=== PATIENT | male | born 1945 | race Caucasian/White ===

== ENCOUNTER → 2018-10-30 10:45 | Outpatient (CLI) | payer MEDICARE, OTHER, SELFPAY ==
[2018-10-30 11:10] LABS: Hematocrit 28.6 % (42.0-52.0); Hemoglobin 8.5 g/dL (14.1-18.0); Lymphocytes # 1.2 K/mm3 (0.7-4.5); Lymphocytes % 8.9 % (10-50); Mean Corpuscular HGB Conc 29.8 g/dL (31.8-35.4); Mean Corpuscular Hemoglobin 27.5 pg (27.0-31.2); Mean Corpuscular Volume 92.2 fl (80-94); Mean Platelet Volume 6.9 fl (7.4-10.4); Monocytes # 0.6 K/mm3 (0.1-1.0); Monocytes % 4.6 % (1.7-9.3); Neutrophils # 11.5 K/mm3 (1.8-7.8); Neutrophils % 86.4 % (37.0-80.0); Platelet Count 497 K/mm3 (142-424); Red Cell Distribution Width 15.1 % (11.5-17.5); White Blood Count 13.4 K/mm3 (4.8-10.8)
[2018-10-30 11:16] LABS: MANUAL DIFFERENTIAL MANUAL DIFFERENTIAL (MANUAL DIFF)
[2018-10-30 12:51] LABS: Anion Gap 17.5 mEq/L (5-15); Blood Urea Nitrogen 13 mg/dL (7-18); Calcium 8.9 mg/dL (8.5-10.1); Carbon Dioxide 23 mmol/L (21.0-32.0); Chloride 106 mmol/L (98-107); Creatinine,Serum 1.07 mg/dL (0.70-1.30); Estimated Glomerular Filt Rate 68 ml/min (>60); GFR (African American) 82 ML/MIN (>60); Glucose 173 mg/dL (74-106); Potassium 4.5 mmoL/L (3.5-5.1); Sodium 142 mmol/L (136-145)
[2018-10-30 14:40] LABS: Lymphocytes % 10 % (10-50); Monocytes % 3 % (2-9); Neutrophils % 83 % (42-76); Platelet Estimate Slight Increase; RBC Morphology Normal; Total Cells Counted 100
== END ==
LOC: LAB 10:47 → LAB.DROPOF 11-01 13:54
PROVIDERS: Visit Provider Emergency Medicine
DX: R06.02 Shortness of breath (principal); R53.1 Weakness
CPT/HCPCS: 36415; 80048; 85007; 85025

== ENCOUNTER 2020-05-16 14:21 | Emergency (ER) | payer MEDICARE, SELFPAY ==
[2020-05-16 14:38] VITALS: BP 165/84; PULSE 114; RESP 14; TEMP 36.6; O2SAT 95; BMI 33.9
--- NOTE | 2020-05-16 14:38 | XR_ITS ---
PROCEDURE: XR FOOT LT MIN 3V CLINICAL INDICATION: foot run over by fork truck COMPARISON: No exams were available for comparison FINDINGS: No fracture or dislocation. No lytic or blastic change. There is normal mineralization. Mild degenerative changes at the talonavicular joint and tarsal metatarsal junction. 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 Other findings:None. IMPRESSION: No acute findings. Dictated by: Maxwell Love MD 05/16/2020 15:48 Maxwell Love MD in [place] 05/16/2020 15:48
--- NOTE | 2020-05-16 14:45 | HMH.EDUTC ---
[facility] [facility] [place] Clinical Impression: Foot contusion Qualifiers: Encounter type: initial encounter Laterality: left Qualified Code(s): S90.32XA - Contusion of left foot, initial encounter Disposition: Home, Self-Care Condition on Discharge: Good Instructions: How To Perform RICE (Rest, Ice, Compress, Elevate) Additional Instructions: *RICE, Rest the extremity, Ice 15-20 minutes 3-4 times daily, Compress- wear the david wrap as discussed as much as possible to help reduce swelling and pain, Elevate the extremity when at rest *David wrap/Walking boot is for support and help control swelling, use it except in the shower. Be sure that is not to tight but not to loose either *Elevate when resting and ice 20 minutes every 2 hours will help with pain,swelling and bruising *Ibuprofen every 6-8 hours as needed for pain an inflammation. If need something more can take Tylenol in between doses of Ibuprofen to help Immediately follow up with your family doctor for new or worsening of symptoms, or no noticeable improvement over the next 3-5 days Return if needed You may call back to the [facility] later this evening for the official reading of your xray and further instructions Straight to ER if any life threatening symptoms Referrals: Tavares Zayas MD [Primary Care Provider] - As needed William Hassan MD [Staff Physician] - Time of Disposition: 15:19 Medical Decision Making - Yaya Inquiry Pt receiving controlled substance: No Yaya was queried for this patient: No Vital Signs: 05/16/20 14:38 05/16/20 15:22 Temperature 98 F 98 F Temperature Source Tympanic Pulse Rate 110 H Pulse Rate [Right] 114 H Respiratory Rate 14 16 Blood Pressure 160/81 H Blood Pressure [Right Arm] 165/84 H Blood Pressure Mean [Right Arm] 111 Blood Pressure Source Automatic Cuff Blood Pressure Source [Right Arm] Automatic Cuff Blood Pressure Position Sitting Blood Pressure Position [Right Arm] Sitting 02 Sat by Pulse Oximetry 95 Oxygen Delivery Method Room Air - Radiology Data #1 Image(s): Foot/Toes Image Reviewed: Yes I reviewed the patient's radiology image Preliminary Findings: No Fracture [place] [facility] [place] - General Stated complaint: [id number] left foot pain Time Seen by Provider: 05/16/20 14:46 Mode of Arrival: Ambulatory Source of Information: Patient Limitations: No Limitations Description of Symptoms (Recalled from Triage Doc. by RN): PT HAD HIS LEFT FOOT RAN OVER BY A FORK LIFT. PAIN IN L FOOT AND BIG TOE. HEENT Symptoms (Recalled from RN notes): No Resp Symptoms (Recalled from RN notes): No Skin Symptoms (Recalled from RN notes): No MS Symptoms (Recalled from RN notes): Yes (L FOOT PAIN) Functional Status (Recalled from RN notes): NA - History of Present Illness Provider Complaint: Patient states that around 10am he was at work and his left foot was run over accidently with a fork lift State that he has continued to work today but noticed he was having more pain and swelling in his left foot and great toe area so he came in to have it checked - Related Data Home Medications Medication Instructions Recorded Confirmed No Known Home Medications 03/27/19 03/27/19 Allergies Allergy/AdvReac Type Severity Reaction Status Date / Time No Known Allergies Allergy Verified 05/16/20 14:26 - Worker's Comp Is this a Worker's Comp case?: No [facility] History - Hepatitis A Screen Drug use history?: No High risk sexual behaviors?: No History of sexually transmitted infection?: No Currently employed?: No Childcare worker?: No Do you have indoor plumbing?: Yes Do you have electricity?: Yes Attestation statement:: This patient has been screened for Hepatitis A risk factors. I have reviewed the patient's past medical history: Yes Medical History: Denies:: Diabetes Mellitus Type 1, Diabetes Mellitus Type 2 Other Medical History: Reports: Other - Social History Smoking Status: Never smoker Alcohol Intake:
[2020-05-16 15:22] VITALS: BP 160/81; PULSE 110; RESP 16; TEMP 36.6
== END 2020-05-16 15:28 | disposition home or self-care (01) ==
PROVIDERS: Emergency Provider Nurse Practitioner; PCP Family Medicine
DX: S90.32XA Contusion of left foot, initial encounter (principal); W31.89XA Contact with other specified machinery, initial encounter; Y92.69 Other specified industrial and construction area as the place of occurrence of the external cause; Y99.0 Civilian activity done for income or pay
CPT/HCPCS: 29515; 73630; 99202; G0463

== ENCOUNTER 2021-07-16 19:34 | Emergency (ER) | payer MEDICARE, SELFPAY ==
[2021-07-16] VITALS (10 sets, daily range): BP systolic 130–160; BP diastolic 58–68; PULSE 47–59; RESP 14–26; TEMP 36.4–36.8; O2SAT 91–97; BMI 33.9
--- NOTE | 2021-07-16 19:33 | ECG_ITS ---
APPROVED REPORT Exam: Resting ECG HR:57 bpm ECG Measurements Heart Rate 57 AXES ND 148 P 61 QRSd 134 QRS 90 QT 573 T 38 QTc 568 Conclusion SINUS BRADYCARDIA WITH OCCASIONAL SUPRAVENTRICULAR PREMATURE COMPLEXES RIGHT BUNDLE BRANCH BLOCK [120+ ms QRS DURATION, UPRIGHT V1, 40+ ms S IN I/aVL/V4/V5/V6] PROLONGED QT INTERVAL CRITICAL TEST RESULT UNCONFIRMED REPORT Electronically signed by : Tavares Rice MD 07/18/2021 08:03:29
--- NOTE | 2021-07-16 19:38 | HMH.EDGENADL ---
ED Disposition Condition on Discharge: Good - Critical Care Critical Care Time: No <Jd Broderick - Last Filed: 07/16/21 19:38> <Roberto Greer - Last Filed: 07/16/21 23:46> Clinical Impression: Arm paresthesia, left, Neck pain, Shortness of breath, Heart murmur, systolic, Elevated brain natriuretic peptide (BNP) level Disposition: Home, Self-Care Instructions: DI for Shortness of Breath Additional Instructions: see card in am Referrals: Norma Watson MD [Primary Care Provider] - Mauricio Corcoran MD [Staff Physician] - Attestation: On 07/16/21, the high probability of a clinically significant, sudden or life threatening deterioration of the following system(s) required my full and direct attention, intervention and personal management. The time I documented below is in addition to time spent performing reported procedures but includes the following listed in this critical care notation. Medical Decision Making - Medical Records Medical records reviewed: Yes: I reviewed the patient's medical records. - Yaya Inquiry Pt receiving controlled substance: No - ECG Data Tracing #1 I reviewed this ECG and interpreted as documented below: <Jd Broderick - Last Filed: 07/16/21 19:38> - Lab Data Lab results reviewed: Yes: I reviewed the patient's lab results. Result diagrams: 07/16/21 19:37 07/16/21 19:37 - Radiology Data #1 Image(s): Chest Image Reviewed: Yes I have reviewed radiologist's interpretation Preliminary Findings: Normal/NAD - CT Data CT Scan: Chest Time Received: 23:[address] Reviewed: Yes: I have viewed the radiologist's interpretation Preliminary Findings: Abnormal (see report ) - Physician Consults Physician Consulted: moris Reason -: Pt condition - JOSIAH Score for Non-Stemi Age of Patient: 70-79 years old Heart Rate: 50-69 bpm Systolic Blood Pressure: 160-199 mmHg Serum Creatinine: 1.20-1.59 mg/dl CHF Killip Class: II-Pulmonary Rales or Jug Other Risk Factors: None Non-Stemi Risk Score: 118 <Roberto Greer - Last Filed: 07/16/21 23:46> Vital Signs: 07/16/21 19:35 07/16/21 20:01 07/16/21 20:30 Temperature 97.5 F L Temperature Source Oral Pulse Rate 50 L 47 L Pulse Rate [Right] 59 L Respiratory Rate 21 17 22 Blood Pressure 134/58 L 130/62 Blood Pressure [Right Arm] 160/58 H Blood Pressure Mean Blood Pressure Mean [Right Arm] 92 02 Sat by Pulse Oximetry 97 95 92 L Oxygen Delivery Method Room Air Room Air 07/16/21 21:01 07/16/21 21:30 07/16/21 22:01 Temperature Temperature Source Pulse Rate 51 L 48 L 48 L Pulse Rate [Right] Respiratory Rate 22 19 26 H Blood Pressure 142/62 H 150/61 H 130/59 L Blood Pressure [Right Arm] Blood Pressure Mean 86 Blood Pressure Mean [Right Arm] 02 Sat by Pulse Oximetry 95 96 91 L Oxygen Delivery Method Room Air Room Air 07/16/21 22:31 07/16/21 23:01 07/16/21 23:30 Temperature Temperature Source Pulse Rate 48 L 47 L 51 L Pulse Rate [Right] Respiratory Rate 14 14 24 Blood Pressure 141/68 H 141/61 H 154/63 H Blood Pressure [Right Arm] Blood Pressure Mean Blood Pressure Mean [Right Arm] 02 Sat by Pulse Oximetry 95 94 L 94 L Oxygen Delivery Method Room Air Room Air Room Air 07/16/21 23:31 Temperature 98.3 F Temperature Source Oral Pulse Rate 50 L Pulse Rate [Right] Respiratory Rate 19 Blood Pressure 154/63 H Blood Pressure [Right Arm] Blood Pressure Mean Blood Pressure Mean [Right Arm] 02 Sat by Pulse Oximetry Oxygen Delivery Method Room Air - Lab Data Lab Results 07/16/21 19:37: WBC 8.0, RBC 4.58 L, Hgb 14.9, Hct 43.6, MCV 95.3 H, MCH 32.6 H, MCHC 34.2, RDW 13.3, Plt Count 139 L, MPV 8.0, Neut % (Auto) 52.8, Lymph % (Auto) 24.7, [place] % (Auto) 9.8 H, Eos % (Auto) 12.2 H, Baso % (Auto) 0.6, Neut # (Auto) 4.2, Lymph # (Auto) 2.0, [place] # (Auto) 0.8, Eos # (Auto) 1.0 H, Baso # (Auto) 0.1 07/16/21 19:37: Sodium 139, Potassium 3.5,
--- NOTE | 2021-07-16 19:40 | XR_ITS ---
PROCEDURE INFORMATION: Exam: XR Chest Exam date and time: 07/16/2021 8:02 PM Age: 76 years old Clinical indication: Shortness of breath; Patient HX: Left arm numbness; Additional info: SOA TECHNIQUE: Imaging protocol: XR of the chest. Views: 1 view. COMPARISON: CR XR CHEST 2V 03/27/2019 8:58 PM FINDINGS: Lungs: No consolidation. Pleural spaces: No pneumothorax. Heart/Mediastinum: No cardiomegaly. Bones/joints: No acute abnormality. IMPRESSION: No acute findings.
[2021-07-16 19:55] LABS: Basophils # 0.1 K/mm3 (0-0.2); Basophils % 0.6 % (0.1-2.0); Eosinophils % 12.2 % (0.1-12.0); Hematocrit 43.6 % (42.0-52.0); Hemoglobin 14.9 g/dL (14.1-18.0); Lymphocytes % 24.7 % (10-50); Mean Corpuscular HGB Conc 34.2 g/dL (31.8-35.4); Mean Corpuscular Hemoglobin 32.6 pg (27.0-31.2); Mean Corpuscular Volume 95.3 fl (80-94); Monocytes # 0.8 K/mm3 (0.1-1.0); Monocytes % 9.8 % (1.7-9.3); Neutrophils # 4.2 K/mm3 (1.8-7.8); Neutrophils % 52.8 % (37.0-80.0); Platelet Count 139 K/mm3 (142-424); Red Blood Count 4.58 M/mm3 (4.60-6.20); Red Cell Distribution Width 13.3 % (11.5-17.5)
[2021-07-16 20:01] LABS: Chloride 107 mmol/L (98-107); Sodium 139 mmol/L (136-145)
[2021-07-16 20:02] LABS: Potassium 3.5 mmoL/L (3.5-5.1)
--- NOTE | 2021-07-16 20:03 | PC.NURSE ---
RAD at bedside
[2021-07-16 20:04] LABS: Alanine Aminotransferase 52 U/L (12-78); Albumin Level 3.6 g/dl (3.5-5.0); Albumin/Globulin Ratio 1.2 (1.1-1.8); Alkaline Phosphatase 110 U/L (38-126); Anion Gap 9.5 mEq/L (5-15); Aspartate Amino Transferase 45 U/L (17-59); Bilirubin,Total 0.5 mg/dl (0.2-1.3); Blood Urea Nitrogen 22 mg/dl (9-20); Carbon Dioxide 26 mmol/L (22.0-30.0); Creatinine Clearance Estimated 72 mL/min (50-200); Estimated Glomerular Filt Rate 59 ml/min (>60); GFR (African American) 71 ML/MIN (>60); Total Protein,Serum 6.6 g/dl (6.3-8.2)
[2021-07-16 20:05] LABS: Calcium 9.2 mg/dl (8.4-10.2); Glucose 86 mg/dl (74-100)
[2021-07-16 20:16] LABS: Troponin I 0.02 ng/ml (0.00-0.034)
--- NOTE | 2021-07-16 22:00 | CT_ITS ---
PROCEDURE INFORMATION: Exam: CTA Chest With Contrast Exam date and time: 07/16/2021 10:15 PM Age: 76 years old Clinical indication: Shortness of breath; Additional info: SOA TECHNIQUE: Imaging protocol: Computed tomographic angiography of the chest with contrast. 3D rendering (Not supervised by radiologist): MIP and/or 3D reconstructed images were created by the technologist. Radiation optimization: All CT scans at this facility use at least one of these dose optimization techniques: automated exposure control; mA and/or kV adjustment per patient size (includes targeted exams where dose is matched to clinical indication); or iterative reconstruction. Contrast material: ISOVUE 370; Contrast volume: 70 ml; Contrast route: INTRAVENOUS (IV); COMPARISON: CR XR CHEST PORTABLE 07/16/2021 8:02 PM FINDINGS: Pulmonary arteries: Normal. No pulmonary emboli. Aorta: Calcified atherosclerosis. No aortic aneurysm. No aortic dissection. Lungs: Evaluation is limited by motion. Emphysema with septal thickening and streaky dependent pulmonary opacities. Pleural spaces: Small right and trace left pleural effusions. Heart: No cardiomegaly. No pericardial effusion. Lymph nodes: No enlarged lymph nodes. Spleen: There are multiple splenic calcifications likely on the basis of prior granulomatous exposure. Bones/joints: No acute fracture. Soft tissues: No significant swelling. IMPRESSION: Emphysema with effusions, septal thickening and streaky dependent pulmonary opacities likely secondary to edema. Follow-up to radiographic clearance is recommended.
--- NOTE | 2021-07-16 22:54 | PC.NURSE ---
Notified Lab more blood work orders had been added
[2021-07-16 23:01] LABS: Troponin I 0.02 ng/ml (0.00-0.034)
[2021-07-16 23:14] LABS: NT Pro Brain Natriuretic Pep. 1710 pg/mL (0-450)
[2021-07-16 23:22] LABS: T4 (Thyroxine) 8.6 ug/dl (5.53-11.0)
--- NOTE | 2021-07-16 23:34 | PC.NURSE ---
ER speaking with dr subramanian at this time
[2021-07-16 23:36] LABS: Thyroid Stimulating Hormone 1.84 uIU/mL (0.465-4.68)
== END 2021-07-16 23:58 | disposition home or self-care (01) ==
PROVIDERS: Emergency Medicine; Emergency Provider Emergency Medicine; PCP Family Medicine
DX: R07.9 Chest pain, unspecified; M54.2 Cervicalgia; R00.1 Bradycardia, unspecified; R06.02 Shortness of breath; R20.2 Paresthesia of skin; R79.89 Other specified abnormal findings of blood chemistry; I45.10 Unspecified right bundle-branch block; I44.1 Atrioventricular block, second degree; R01.1 Cardiac murmur, unspecified; R94.31 Abnormal electrocardiogram [ECG] [EKG]; R53.82 Chronic fatigue, unspecified; Z79.84 Long term (current) use of oral hypoglycemic drugs; Z87.891 Personal history of nicotine dependence
CPT/HCPCS: 71045; 71275; 80053; 83880; 84436; 84443; 84484; 85025; 93005; 99285; Q9967

== ENCOUNTER 2021-07-17 10:26 | Day surgery (SDC) | payer MEDICARE, SELFPAY ==
[2021-07-17] VITALS (11 sets, daily range): BP systolic 112–193; BP diastolic 74–108; PULSE 60–92; RESP 15–18; O2SAT 93–98; BMI 35.0
--- NOTE | 2021-07-17 | IR_ITS ---
APPROVED REPORT Patient Location: Outpatient Truck Repair Supervisor: RAJ Han RT (R) PROCEDURES 1. Pocket formation for Permanent Pacemaker Placement. 2. Placement of an atrial sensing and pacing coil into the right atrial appendage. 3. Placement of a ventricular sensing and pacing coil in the right ventricular apex. 4. Permanent Pacemaker Placement. INDICATION 2nd degree HB Mobitz II Informed consent was obtained prior to the procedure. COMPLICATIONS NONE Estimated Blood Loss: LESS THAN 10 ML TECHNIQUE 1% Lidocaine with epinephrine used to anesthetized the left anterior aspect of the chest. Scalpel was used to make the initial cutaneous incision while electrocautery was used to dissect down tinto the fascia. The fascia was lifted off the pectoralis muscle and digitally manipulated creating a pocket for the pacemaker. The patient was then placed in Trendelenburg position and the subclavian vein was accessed twice via the Selinger technique, there are two wires in the vein. A 6 Monegasque sheath was placed under fluoroscopic guidance into the subclavian vein over one of the wires while keeping the other wire in place within the subclavian vein. The dilator was removed from the sheath. Using fluoroscopic guidance, the ventricular lead was placed into the right ventricular apex, screwed and secured into place. Electronic interrogation proved acceptable thresholds and voltage within the lead. Using 3-0 silk, the ventricular lead was then secured into place. Lead was secured to the facia using the 3-0 silk. Following this, the sheath was pealed away. An additional 6 Monegasque fresh sheath and dilator was placed over the existing wire. Using fluoroscopic guidance, the atrial lead was the placed into the right atrial appendage and screwed and secured in place. Electrical interrogation demonstrated acceptable thresholds and voltage number. The atrial lead was then secured into place using 3-0 silk. 1 gram of Ancef was used to flush the pocket. Following the pacemaker generator being secured to the fascia and in place, Monocryl was used to close the subcutaneous layers while yaniv were used to close the cutaneous layer. A pressure dressing was placed and the patient was transferred to the postop holding area in stable condition for postoperative care. INTERROGATION Generator Model number: Core CompetenceMATT MOMIN DR, L311 Generator Serial number: [id number] Atrial lead model number: INGEVITY+ 52CM, 7841 Atrial lead serial number: [id number] P-wave: 4.0 mV Impedence: 850 ohms Threshold: 0.7V@0.4ms Current: 0.9 mA Right Ventricular lead model number: CLAU+ 59CM, 7842 Right Ventricular lead serial number: [id number] R-wave: 12.0 mV Impedence: 895 ohms Threshold: 0.7V@0.4ms Current: 0.8 mA Pacing Parameters: Mode: DDDR Base/Max Track:60 ppm / 130 ppm No diaphragmatic stimulation at 10 volts. IMPRESSION 1. Successful pocket formation for Permanent Pacemaker Placement. 2. Successful placement of an atrial sensing and pacing coil into the right atrial appendage. 3. Successful placement of a ventricular sensing and pacing coil in the right ventricular apex. 4. Successful permanent Pacemaker Placement. PLAN 1. POST OP WOUND CARE Electronically signed by : Mauricio Corcoran MD 07/17/2021 15:19:42
--- NOTE | 2021-07-17 10:28 | CA_ITS ---
APPROVED REPORT EXAM: Comprehensive 2D, Doppler, and color-flow Echocardiogram Family Dinner Service Specialist: Yolanda Ledezma, DANAE, RVS Ht: 5 ft 6 in Wt: 217lbs BSA: 2.07 BP: 000/00 mmHg Indications: 1st degree AV block, Near syncope, Murmurs, fatigue, SOA, Dizziness, elevated BNP 2D Dimensions Aortic Root 2.96 cm LA Volume 56.90 mL Left Atrium 3.93 cm LA Volume Index [id number] mL/m2 (M/F) 16-34 LVOT 2.14 cm (M/F) 1.5-2.5 M-Mode Dimensions RVDd 2.72 cm (0.9-2.6) LA Diam 4.53 cm (1.9-4.0) LVDd 4.19 cm (3.5-5.7) Ao Diam 3.30 cm (2.0-3.7) LVDs 2.18 cm (3.5-5.7) IVSd 1.00 cm (0.6-1.1) PWd 1.00 cm (0.6-1.1) EF (Teich) 79.80% EPSs 0.27 cm FS 48.00% EDV (Teich) 78.10 mL TAPSE 2.39 (<1.7) ESV (Teich) 15.80 mL LV Diastology E Decel Time 250.00 (160-240 msec) E/A Ratio 0.93 MED E' 6.80 (< 7 cm/sec) MED A' 10.30 cm/s E'/MED E' Ratio 20.91 (>14) LAT E' 13.90 (<10 cm/sec) LAT A' 7.60 cm/s E/LAT E' Ratio 10.23 (>14) Aortic Valve LVOT Max 140.00 (70-110 cm/s) LVOT VTI 36.40 cm AoV Peak Brian. 344.00 (50-130 cm/s) AI PHT 533.00 ms AO Peak GR. 47.60 mmHg AO Mean GR. 31.40 (<5 mmHg) AO VTI 84.60 (18-25 cm) HOLLAND (VTI) 1.55 (2.5-4.5 cm2) Mitral Valve MV A Velocity 154.00 (40-130 cm/s) E/A Ratio 0.93 MV Decel. Time 250.00 (160-240 ms) MV Mean Gr. 3.80 (<2mmHg) MV PHT 73.00 ms Pulmonary Valve PV Peak Velocity 122.00 (50-150 cm/s) MD End VMAX 202.00 cm/s Tricuspid Valve TR P. Velocity 320.00 cm/s RAP Estimate 10.00 mmHg RVSP 50.90 mmHg Left Ventricle Left atrium is mildly enlarged, left ventricle is normal size, mild concentric left ventricular hypertrophy, estimated ejection fraction 55% with no regional wall motion abnormality. Diastolic parameters are inconclusive. Right Ventricle Right atrium and right ventricle are mildly enlarged with normal contractility. Aortic Valve Aortic valve is thickened and calcified with severe restriction to leaflet mobility, mean gradient across aortic valve is 35 mmHg, valve area is not accurately calculated, there is likely severe aortic stenosis, there is mild aortic insufficiency. Mitral Valve Mitral valve leaflets are minimally thickened, there is mild mitral regurgitation. Tricuspid Valve Tricuspid valve grossly normal, there is mild tricuspid regurgitation, tricuspid regurgitation jet velocity is inadequate for calculation of the right ventricular systolic pressure. Pulmonic Valve Pulmonic valve is poorly visualized. Great Vessels Aortic root is normal size. Inferior vena cava is poorly visualized. Pericardium No significant pericardial effusion. Conclusion 1. Mild biatrial enlargement, normal left ventricular size, mild concentric left ventricular hypertrophy, estimated ejection fraction 55% with no regional wall motion abnormality, diastolic parameters are inconclusive. 2. Thickened and calcified aortic valve with likely severe aortic stenosis valve area is not accurately calculated in the study. There is mild aortic insufficiency. 3. Mild mitral and tricuspid regurgitation. 4. No significant pericardial effusion noted. 5. Inferior vena cava is poorly visualized. Electronically signed by : Clemente Parson MD 07/17/2021 21:43:26
[2021-07-17 11:10] LABS: Coronavirus 19, PCR Not Detected (NotDetected); Influenza A, PCR Not Detected (NotDetected); Influenza B, PCR Not Detected (NotDetected)
--- NOTE | 2021-07-17 13:33 | HMH.ANESCL ---
[facility] Anesthesia Checklist - Patient Identification Patient Identification: Arm Band - Structural Data Admitted From: Home Planned Operative Procedure/s: Dual Chamber Pacemaker, AICD Consent for Planned Operative Procedure(s) Verified: Yes Verified Documents: Surgical Consent, History and Physical - NPO Status Verified Time NPO: 00:00 - Additional verifications Anesthesia Reactions: No - Airway Assessment C-Spine Mobility Assessed: Yes (mp3) TMJ Mobility Assessed: Yes Dentition: Edentulous - Neurological Assessment Level of Consciousness: Awake, Alert - Anesthesia Plan Anesthesia Risk discussed: Yes Anesthesia Plan: Verified ASA Class: III Anesthesia Type: MAC [facility] History I have reviewed the patient's past medical history: Yes Medical History: Reports:: Arrhythmia, Hypertension Denies:: Diabetes Mellitus Type 1, Diabetes Mellitus Type 2 *Have you ever received a pneumonia vaccine?: Yes *Have you received a flu vaccine this season?: Yes Other Medical History: Reports: Other Anesthesia experience/problems:: nac Other Surgeries: Yes: Colonoscopy, EGD - *Social History Last grade of school completed: GED Smoking Status: Former smoker Alcohol Intake: never Substance Use Type: denies use *Occupational Status:: retired *Travel in the last 8 weeks: None Family Hx:: Diabetes, Heart Attack, Hypertension
--- NOTE | 2021-07-17 14:32 | XR_ITS ---
FINAL REPORT CLINICAL HISTORY: post pace maker FINDINGS: The heart size is normal. There is a left subclavian pacemaker. The mediastinum is normal. There is no focal infiltrate or edema. There are no pleural effusions. There is no pneumothorax. There is no osseous abnormality. IMPRESSION: Left subclavian pacemaker without pneumothorax. Reviewed, Interpreted and Dictated by Michael Ivey MD Transcribed by Matt Boyd Authenticated by Michael Ivey MD on 07/17/2021 03:50:32 PM [facility]
== END 2021-07-17 16:29 | disposition home or self-care (01) ==
LOC: LAB 12:59 → CATHLAB 12:59
PROVIDERS: Internal Medicine; PCP Family Medicine; Visit Provider Physician Assistant
DX: I44.1 Atrioventricular block, second degree (principal); R00.1 Bradycardia, unspecified; I45.10 Unspecified right bundle-branch block; R06.02 Shortness of breath; R42 Dizziness and giddiness; R53.83 Other fatigue; R55 Syncope and collapse; R79.89 Other specified abnormal findings of blood chemistry; R94.31 Abnormal electrocardiogram [ECG] [EKG]; Z87.891 Personal history of nicotine dependence; I10 Essential (primary) hypertension; Z20.822 Contact with and (suspected) exposure to COVID-19
CPT/HCPCS: 33208; 71045; 93306; C1785; C1898; C9803; U0003; U0005

== ENCOUNTER 2021-07-26 20:32 | Emergency (ER) | payer MEDICARE, SELFPAY ==
[2021-07-26] VITALS (8 sets, daily range): BP systolic 113–155; BP diastolic 62–77; PULSE 82–96; RESP 12–21; TEMP 36.7–36.8; O2SAT 94–97; BMI 33.9
--- NOTE | 2021-07-26 20:32 | ECG_ITS ---
APPROVED REPORT Exam: Resting ECG HR:95 bpm ECG Measurements Heart Rate 95 AXES MO 149 P 54 QRSd 153 QRS 85 QT 374 T -72 QTc 427 Conclusion SINUS RHYTHM RIGHT BUNDLE BRANCH BLOCK [120+ ms QRS DURATION, UPRIGHT V1, 40+ ms S IN I/aVL/V4/V5/V6] MARKED T-WAVE ABNORMALITY, CONSIDER ANTEROLATERAL ISCHEMIA [-0.5+ mV T-WAVE IN I/aVL/V3-V6] MODERATE T-WAVE ABNORMALITY, CONSIDER INFERIOR ISCHEMIA [-0.1+ mV T-WAVE IN II/aVF] ABNORMAL ECG UNCONFIRMED REPORT Electronically signed by : Tavares Rice MD 07/27/2021 09:03:02
--- NOTE | 2021-07-26 20:41 | XR_ITS ---
PROCEDURE INFORMATION: Exam: XR Chest Exam date and time: 07/26/2021 8:53 PM Age: 76 years old Clinical indication: Sternal or substernal pain; Additional info: Chest pain TECHNIQUE: Imaging protocol: XR of the chest. Portable AP upright exam 8:55 p.m. Views: 1 view. COMPARISON: CR XR CHEST AP 07/17/2021 2:53 PM FINDINGS: Lungs: No acute pulmonary findings. No pulmonary consolidation. Mild subsegmental atelectasis or interstitial scarring at the left base. Pulmonary vessels do not appear significantly congested. Pleural spaces: Unremarkable. No significant pleural effusion. No pneumothorax. Heart/Mediastinum: Upper normal sized cardiac silhouette. A dual lead left subclavian cardiac pacemaker. Overlying operating room coordinator electrodes. Vasculature: Calcified plaques in the aortic arch. Bones/joints: There are spinal degenerative changes, with multilevel disc narrrowing and spondylosis. Bilateral acromioclavicular arthritis. IMPRESSION: 1. No acute cardiopulmonary findings. 2. Additional nonemergency and chronic findings as above.
[2021-07-26 21:16] LABS: Basophils # 0.1 K/mm3 (0-0.2); Eosinophils % 15.2 % (0.1-12.0); Hematocrit 50.6 % (42.0-52.0); Lymphocytes # 1.8 K/mm3 (0.7-4.5); Lymphocytes % 27.5 % (10-50); Mean Corpuscular HGB Conc 33.6 g/dL (31.8-35.4); Mean Corpuscular Hemoglobin 32.7 pg (27.0-31.2); Mean Corpuscular Volume 97.1 fl (80-94); Mean Platelet Volume 7.8 fl (7.4-10.4); Monocytes # 0.8 K/mm3 (0.1-1.0); Monocytes % 12.7 % (1.7-9.3); Neutrophils # 2.8 K/mm3 (1.8-7.8); Neutrophils % 42.5 % (37.0-80.0); Platelet Count 149 K/mm3 (142-424); Red Blood Count 5.22 M/mm3 (4.60-6.20); Red Cell Distribution Width 13.6 % (11.5-17.5); White Blood Count 6.5 K/mm3 (4.8-10.8)
[2021-07-26 21:21] LABS: Chloride 96 mmol/L (98-107); Potassium 3.6 mmoL/L (3.5-5.1); Sodium 133 mmol/L (136-145)
[2021-07-26 21:24] LABS: Blood Urea Nitrogen 23 mg/dl (9-20); Creatinine Clearance Estimated 78 mL/min (50-200); Estimated Glomerular Filt Rate 65 ml/min (>60); GFR (African American) 79 ML/MIN (>60)
[2021-07-26 21:25] LABS: Anion Gap 12.6 mEq/L (5-15); Calcium 8.9 mg/dl (8.4-10.2); Carbon Dioxide 28 mmol/L (22.0-30.0); Glucose 155 mg/dl (74-100)
--- NOTE | 2021-07-26 21:29 | HMH.EDCP ---
ED Disposition Clinical Impression: Unstable angina pectoris, Non-ST elevated myocardial infarction (non-STEMI), Pacemaker Aortic stenosis Qualifiers: Cardiac valve disease etiology: etiology unspecified Qualified Code(s): I35.0 - Nonrheumatic aortic (valve) stenosis Disposition: Xfer Short-Term Hosp Condition on Discharge: Good Referrals: Norma Watson MD [Primary Care Provider] - - Critical Care Critical Care Time: No Attestation: On 07/26/21, the high probability of a clinically significant, sudden or life threatening deterioration of the following system(s) required my full and direct attention, intervention and personal management. The time I documented below is in addition to time spent performing reported procedures but includes the following listed in this critical care notation. Medical Decision Making - Medical Records Medical records reviewed: Yes: I reviewed the patient's medical records. - Yaya Inquiry Pt receiving controlled substance: No Vital Signs: 07/26/21 20:37 07/26/21 20:41 07/26/21 21:00 Temperature 98.2 F Temperature Source Oral Pulse Rate 94 H 89 Pulse Rate [Right] 96 H Respiratory Rate 21 18 Blood Pressure 126/66 113/73 Blood Pressure [Right Arm] 155/68 H Blood Pressure Mean 89 Blood Pressure Mean [Right Arm] 97 Blood Pressure Source [Right Arm] Automatic Cuff 02 Sat by Pulse Oximetry 97 96 94 L Oxygen Delivery Method Room Air Room Air 07/26/21 21:30 07/26/21 22:00 Temperature Temperature Source Pulse Rate 87 88 Pulse Rate [Right] Respiratory Rate 18 18 Blood Pressure 131/74 115/62 Blood Pressure [Right Arm] Blood Pressure Mean 88 78 Blood Pressure Mean [Right Arm] Blood Pressure Source [Right Arm] 02 Sat by Pulse Oximetry 94 L 94 L Oxygen Delivery Method - Lab Data Lab results reviewed: Yes: I reviewed the patient's lab results. Lab Results 07/26/21 20:35: WBC 6.5, RBC 5.22, Hgb 17.0, Hct 50.6, MCV 97.1 H, MCH 32.7 H, MCHC 33.6, RDW 13.6, Plt Count 149, MPV 7.8, Neut % (Auto) 42.5, Lymph % (Auto) 27.5, [place] % (Auto) 12.7 H, Eos % (Auto) 15.2 H, Baso % (Auto) 2.0, Neut # (Auto) 2.8, Lymph # (Auto) 1.8, [place] # (Auto) 0.8, Eos # (Auto) 1.0 H, Baso # (Auto) 0.1 07/26/21 20:35: Sodium 133 L, Potassium 3.6, Chloride 96 L, Carbon Dioxide 28, Anion Gap 12.6, BUN 23 H, Creatinine 1.10, Estimated Creat Clear 78, Estimated GFR 65, Est GFR ( Amer) 79, Glucose 155 H, Calcium 8.9, Troponin I 0.20 H, C-Reactive Protein 25.6 H 07/26/21 20:35: ESR 8 07/26/21 20:35: Total Bilirubin 0.6, Direct Bilirubin 0.2, Conjugated Bilirubin 0.0, Indirect Bilirubin 0.4, Unconjugated Bilirubin 0.3, AST 56, ALT 51, Alkaline Phosphatase 118, Total Protein 6.8, Albumin 3.7 07/26/21 21:41: SARS-CoV-2 (PCR) Not detected, Influenza A Untype (PCR) Not detected, Influenza Type B (PCR) Not detected Result diagrams: 07/26/21 20:35 07/26/21 20:35 Orders (Tests/Meds): ED MEDICATIONS Generic Name Dose Route Start Last Admin Trade Name Freq PRN Reason Stop Dose Admin Sodium Chloride 1,000 mls @ 999 mls/hr 07/26/21 20:45 07/26/21 21:03 Sod Chlor 0.9% 1000ml Bag IV 07/26/21 21:45 Not Given .Q1H1M ROMAN Lactated Ringer's 1,000 mls @ 999 mls/hr 07/26/21 21:15 07/26/21 21:04 Lactated Ringer's 1000 Ml Bag IV 07/26/21 22:15 999 mls/hr .Q1H1M ROMAN Administration Sodium Chloride 10 ml 07/26/21 20:42 Sodium Chloride 0.9% 10ml Flush Syringe IV 08/25/21 20:41 NEEDED PRN Maintain IV Site Discontinued Medications Generic Name Dose Route Start Last Admin Trade Name Freq PRN Reason Stop Dose Admin Aspirin 324 mg 07/26/21 20:42 07/26/21 20:48 Aspirin 81mg Chewable Tablet PO 07/26/21 20:43 324 mg ONCE ONE Administration Morphine Sulfate 2 mg 07/26/21 20:42 07/26/21 20:48 Morphine 2mg/Ml Syringe IV 07/26/21 20:43 2 mg ONCE ONE Administration Nitroglycerin 1 gm 07/26/21 21:46 07/26/21 21:46 Nitroglycerin
[2021-07-26 21:30] LABS: C-Reactive Protein 25.6 mg/L (0-4)
--- NOTE | 2021-07-26 21:41 | PC.NURSE ---
notified kyle of critical trop 0.2
[2021-07-26 21:45] LABS: Coronavirus 19, PCR Not Detected (NotDetected); Influenza A, PCR Not Detected (NotDetected); Influenza B, PCR Not Detected (NotDetected)
--- NOTE | 2021-07-26 21:47 | PC.NURSE ---
Contact [facility] and spoke [facility] about [facility] needing [facility] results before able to give bed status
[2021-07-26 21:54] LABS: Erythrocyte Sedimentation Rate 8 mm/hr (0-20)
[2021-07-26 21:57] LABS: Alanine Aminotransferase 51 U/L (12-78); Albumin Level 3.7 g/dl (3.5-5.0); Alkaline Phosphatase 118 U/L (38-126); Aspartate Amino Transferase 56 U/L (17-59); Bilirubin,Direct 0.2 mg/dl (0.0-0.4); Bilirubin,Indirect 0.4 mg/dL (0.0-0.9); Bilirubin,Total 0.6 mg/dl (0.2-1.3); Bilirubin,Unconjugated 0.3 mg/dL (0.0-1.1); Total Protein,Serum 6.8 g/dl (6.3-8.2)
--- NOTE | 2021-07-26 22:11 | PC.NURSE ---
kyle on phone with dr Hopper @ [place]
--- NOTE | 2021-07-26 22:41 | PC.NURSE ---
[facility] from [facility] call back with bed assignment and phone number to call report. notified galilea that pt ready for transport
--- NOTE | 2021-07-26 22:50 | PC.NURSE ---
Attempted to call report to [facility], nurse Jyotsna unavailable at this time. # to call report [phone]
--- NOTE | 2021-07-26 22:59 | PC.NURSE ---
Gave report to Jyotsna TREJO. She asked for us to call back when the ambulance leaves.
== END 2021-07-27 00:32 | disposition short-term general hospital (02) ==
PROVIDERS: Emergency Provider Emergency Medicine; PCP Family Medicine
DX: I21.4 Non-ST elevation (NSTEMI) myocardial infarction (principal); I20.0 Unstable angina; Z95.0 Presence of cardiac pacemaker; I10 Essential (primary) hypertension; I35.0 Nonrheumatic aortic (valve) stenosis
CPT/HCPCS: 71045; 80048; 80076; 84484; 85025; 85651; 86140; 93005; 96365; 96375; 99284; C9803; J2405; U0003; U0005

== ENCOUNTER 2021-08-15 09:04 | Emergency (ER) | payer MEDICARE, SELFPAY ==
[2021-08-15 09:14] VITALS: BMI 33.9
[2021-08-15 09:24] VITALS: BMI 33.9
[2021-08-15 09:25] VITALS: BP 151/78; PULSE 86; RESP 19; TEMP 36.9
== END 2021-08-15 09:26 | disposition home or self-care (01) ==
PROVIDERS: Emergency Provider Nurse Practitioner Family; PCP Family Medicine
DX: R55 Syncope and collapse (principal); Z48.02 Encounter for removal of sutures; R94.31 Abnormal electrocardiogram [ECG] [EKG]; R00.1 Bradycardia, unspecified; R53.82 Chronic fatigue, unspecified; I44.1 Atrioventricular block, second degree; Z87.891 Personal history of nicotine dependence; Z79.899 Other long term (current) drug therapy

== ENCOUNTER 2021-10-11 06:42 | Day surgery (SDC) | payer MEDICARE, SELFPAY ==
[2021-10-11 07:04] VITALS: BMI 33.4
--- NOTE | 2021-10-11 07:05 | CA_ITS ---
APPROVED REPORT EXAM: Comprehensive 2D, Doppler, and color-flow Echocardiogram Corporate Director Talent Assessment: Zarina TranJAMIL Ht: 5 ft 6 in Wt: 209lbs BSA: 2.04 BP: 129/89 mmHg Indications: SEVERE ,SYNCOPE,PACER,BRADYCARDIA Procedure After obtaining informed consent, patient underwent transesophageal echo in the Police Specialist. Type of Sedation : Conscious Sedation Sedation was administered by Brigido Andrew C.R.N.A. Transesophageal probe was inserted and advanced into esophagus without difficulty by Dr. Sharron Wiley. The MARY ANN was performed without complications. Throughout the procedure, the blood pressure, pulse oximetry, cardiac rhythm, and rate were monitored. The patient tolerated the procedure without adverse effects. Recovery from conscious sedation was uneventful and vital signs were stable. Left Ventricle Left ventricle is normal size mild concentric left ventricular hypertrophy, estimated ejection fraction 55% with no regional wall motion abnormality. Right Ventricle Right ventricle is mildly enlarged with normal contractility. Atria Left atrium is mildly enlarged, left atrial appendage free of thrombus, there is good appendage flow by spectral Doppler. Right atrium is mildly enlarged, pacemaker leads in the right atrium. Intra-atrial septum is intact, there is no flow across the atrial septum, agitated saline contrast study did not identify intracardiac shunt. Aortic Valve Aortic valve is thickened and calcified with severe reduction in leaflet mobility, valve area is 0.63 cm??? by planimetry, there is moderate aortic insufficiency present. Mitral Valve Mitral valve leaflets are minimally thickened, there is moderate mitral regurgitation. There is no mitral stenosis. Tricuspid Valve Tricuspid valve grossly normal, there is mild tricuspid regurgitation. Pulmonic Valve Pulmonic valve is minimally thickened and fibrosed there is mild pulmonic insufficiency. Great Vessels Aortic root is normal size. Ascending, arch and descending thoracic aorta there is no aneurysm or dissection, nonmobile atheromatous plaque seen in the descending thoracic aorta. Pericardium No significant pericardial effusion noted. Conclusion 1. Biatrial enlargement, normal left ventricular size mild concentric left ventricular hypertrophy, estimated ejection fraction 55% with no regional wall motion abnormality. 2. Thickened and calcified aortic valve with severe aortic stenosis, valve area is 0.63 cm???. There is moderate aortic insufficiency. 3. Moderate mitral and mild tricuspid regurgitation. 4. Agitated saline contrast study did not identify intracardiac shunt. 5. No significant pericardial effusion noted. Electronically signed by : Clemente Parson MD 10/11/2021 15:15:22
[2021-10-11 07:11] LABS: Coronavirus 19, PCR Not Detected (NotDetected); Influenza A, PCR Not Detected (NotDetected); Influenza B, PCR Not Detected (NotDetected)
[2021-10-11 07:24] LABS: Basophils # 0.1 K/mm3 (0-0.2); Basophils % 0.8 % (0.1-2.0); Eosinophils # 1.4 K/mm3 (0.0-0.4); Eosinophils % 17.2 % (0.1-12.0); Hematocrit 47.9 % (42.0-52.0); Hemoglobin 16.3 g/dL (14.1-18.0); Lymphocytes # 1.4 K/mm3 (0.7-4.5); Lymphocytes % 17.3 % (10-50); Mean Corpuscular HGB Conc 34.1 g/dL (31.8-35.4); Mean Corpuscular Hemoglobin 32.4 pg (27.0-31.2); Mean Corpuscular Volume 94.9 fl (80-94); Mean Platelet Volume 7.7 fl (7.4-10.4); Monocytes # 0.7 K/mm3 (0.1-1.0); Monocytes % 9.3 % (1.7-9.3); Neutrophils # 4.4 K/mm3 (1.8-7.8); Neutrophils % 55.5 % (37.0-80.0); Platelet Count 161 K/mm3 (142-424); Red Blood Count 5.04 M/mm3 (4.60-6.20); White Blood Count 7.8 K/mm3 (4.8-10.8)
[2021-10-11 07:34] LABS: Anion Gap 9.1 mEq/L (5-15); Blood Urea Nitrogen 24 mg/dl (9-20); Calcium 8.8 mg/dl (8.4-10.2); Carbon Dioxide 28 mmol/L (22.0-30.0); Chloride 106 mmol/L (98-107); Creatinine Clearance Estimated 77 mL/min (50-200); Estimated Glomerular Filt Rate 65 ml/min (>60); GFR (African American) 79 ML/MIN (>60); Glucose 114 mg/dl (74-100); Potassium 4.1 mmoL/L (3.5-5.1); Sodium 139 mmol/L (136-145)
[2021-10-11 09:02] VITALS: BP 107/54; PULSE 74; RESP 16; TEMP 36.1; O2SAT 90
[2021-10-11 09:15] VITALS: BP 97/50; PULSE 64; RESP 20; O2SAT 94
[2021-10-11 09:20] VITALS: BP 102/50; PULSE 70; RESP 20; O2SAT 96
[2021-10-11 09:30] VITALS: BP 110/60; PULSE 65; RESP 20; O2SAT 94
--- NOTE | 2021-10-11 09:39 | P.PN_ITS ---
[facility] Anesthesia Checklist - Patient Identification Patient Identification: Arm Band, Verbal (Name & ) - Structural Data Admitted From: Home Planned Operative Procedure/s: MARY ANN Consent for Planned Operative Procedure(s) Verified: Yes Verified Documents: Surgical Consent - NPO Status Verified Time NPO: 00:00 - Additional verifications Anesthesia Reactions: No Hx Blood Transfusions: No Blood Transfusion Reaction: No - Airway Assessment C-Spine Mobility Assessed: Yes TMJ Mobility Assessed: Yes Dentition: Dentures-poor fitting - Neurological Assessment Level of Consciousness: Awake, Alert, Appropriate - Anesthesia Plan Anesthesia Risk discussed: Yes ASA Class: III Anesthesia Type: MAC [facility] History I have reviewed the patient's past medical history: Yes Medical History: Reports:: Arrhythmia, Hypertension, Internal Pacemaker Denies:: Diabetes Mellitus Type 1, Diabetes Mellitus Type 2 *Have you ever received a pneumonia vaccine?: No *Have you received a flu vaccine this season?: No Other Medical History: Reports: Other. Denies: Blood Transfusion Reaction Anesthesia experience/problems:: none Other Surgeries: Yes: Colonoscopy, EGD, Pacemaker - *Social History Smoking Status: Former smoker Tobacco Type: cigarettes Alcohol Intake: never Substance Use Type: denies use *Occupational Status:: employed *Travel in the last 8 weeks: Inside the [facility] Family Hx:: Diabetes, Heart Attack, Hypertension
[2021-10-11 09:59] VITALS: BP 117/66; PULSE 68; RESP 20; O2SAT 94
== END 2021-10-11 10:03 | disposition home or self-care (01) ==
PROVIDERS: Internal Medicine; Internal Medicine Cardiovascular Disease; PCP Family Medicine; Visit Provider Nurse Practitioner Family
DX: R93.1 Abnormal findings on diagnostic imaging of heart and coronary circulation; I35.0 Nonrheumatic aortic (valve) stenosis; I44.1 Atrioventricular block, second degree; R00.1 Bradycardia, unspecified; R06.02 Shortness of breath; R94.31 Abnormal electrocardiogram [ECG] [EKG]; Z87.891 Personal history of nicotine dependence; Z20.822 Contact with and (suspected) exposure to COVID-19
CPT/HCPCS: 36415; 80048; 85025; 93312; C9803; U0003; U0005

== ENCOUNTER → 2021-10-26 10:26 | Outpatient (CLI) | payer MEDICARE, SELFPAY | PROVIDERS: PCP Family Medicine; Visit Provider Internal Medicine Cardiovascular Disease | DX: Z01.818 Encounter for other preprocedural examination (principal) ==

== ENCOUNTER 2021-10-28 08:16 | Day surgery (SDC) | payer MEDICARE, SELFPAY ==
[2021-10-28] VITALS (14 sets, daily range): BP systolic 119–172; BP diastolic 68–92; PULSE 60–87; RESP 14–18; TEMP 36.8; O2SAT 91–98; BMI 32.9
--- NOTE | 2021-10-28 07:06 | IR_ITS ---
APPROVED REPORT Patient Location: Outpatient Colored Leather Setter: RAJ Pedro RT (R) PROCEDURES Right heart catheterization Left heart catheterization Left ventriculogram Selective coronary angiogram INDICATION Preoperative evaluation for aortic valve replacement due to aortic stenosis, Angina pectoris, Coronary artery disease Informed consent was obtained prior to the procedure. COMPLICATIONS None Estimated Blood Loss: Less than 10 mls TECHNIQUE One percent lidocaine was used to anesthetize the right anterior aspect of the right wrist. The right radial artery was accessed via the Seldinger technique and a 6 Wolof hydrophilic sheath was placed in the right radial artery. Following this one percent lidocaine was used to anesthetize the right anterior aspect of the right neck. The right internal jugular vein was accessed via the Seldinger technique and a 7 Wolof sheath was placed in the right internal jugular vein. Following this an arterial cocktail was administered using 5000U heparin, 2.5 mg verapamil, 1mg Lidocaine and 800mcg nitroglycerin into the right radial sheath. A papa catheter was used to perform left heart catheterization left ventriculogram and selective coronary angiography while a [place] catheter was used to perform right heart catheterization. Saturations were obtained in the pulmonary artery and right atrium. At the end of the procedure the arterial sheath was removed good hemostasis was achieved using Traclet band. Patient was transferred to the postop holding area in stable condition for venous sheath removal. ANGIOGRAPHIC RESULTS The left main artery Has an ostial 40% stenosis The left anterior descending artery Has a proximal concentric 80 to 90% calcified stenosis with a mid vessel calcified 40% stenosis The circumflex artery Is nondominant large with mild 10 to 20% mid vessel stenosis The right coronary artery Large dominant vessel with proximal concentric calcified 70% stenosis with mid vessel and distal 10 to 20% stenoses The WRIGHT ventriculogram reveals Preserved at 55% The left ventricular end-diastolic pressure 35 mmHg Right atrial pressure 8 mmHg Pulmonary pressure 30/20 mmHg Pulmonary occlusion pressure of 17 mmHg Right atrial saturation 83% Pulmonary saturation 83% Aortic saturation 99% Hemoglobin 16 Cardiac output 7.2 L/min IMPRESSION Severe 2-3 vessel coronary disease as described above Preserved ejection fraction Moderate aortic stenosis PLAN 1. Referral to [facility] for coronary bypass surgery accompanied by aortic valve replacement 2. LDL less than 55 to be achieved with high intensity statin Electronically signed by : Mauricio Corcoran MD 10/28/2021 13:00:08
[2021-10-28 08:26] LABS: Coronavirus 19, PCR Not Detected (NotDetected); Influenza A, PCR Not Detected (NotDetected); Influenza B, PCR Not Detected (NotDetected)
[2021-10-28 08:41] LABS: Basophils # 0.1 K/mm3 (0-0.2); Eosinophils # 1.6 K/mm3 (0.0-0.4); Eosinophils % 21.4 % (0.1-12.0); Hematocrit 50.1 % (42.0-52.0); Lymphocytes # 1.7 K/mm3 (0.7-4.5); Lymphocytes % 22.7 % (10-50); Mean Corpuscular Hemoglobin 32.5 pg (27.0-31.2); Mean Corpuscular Volume 101.6 fl (80-94); Mean Platelet Volume 8.2 fl (7.4-10.4); Monocytes # 0.6 K/mm3 (0.1-1.0); Monocytes % 8.5 % (1.7-9.3); Neutrophils # 3.5 K/mm3 (1.8-7.8); Neutrophils % 46.4 % (37.0-80.0); Platelet Count 146 K/mm3 (142-424); Red Blood Count 4.93 M/mm3 (4.60-6.20); Red Cell Distribution Width 13.5 % (11.5-17.5); White Blood Count 7.6 K/mm3 (4.8-10.8)
[2021-10-28 08:49] LABS: Blood Urea Nitrogen 22 mg/dl (9-20); Calcium 8.7 mg/dl (8.4-10.2); Carbon Dioxide 27 mmol/L (22.0-30.0); Chloride 110 mmol/L (98-107); Creatinine Clearance Estimated 84 mL/min (50-200); Estimated Glomerular Filt Rate 73 ml/min (>60); GFR (African American) 88 ML/MIN (>60); Glucose 104 mg/dl (74-100); Sodium 141 mmol/L (136-145)
[2021-10-28 11:57] LABS: CATHL Venous O2 SAT 83.8 % (75-80)
== END 2021-10-28 14:00 | disposition home or self-care (01) ==
PROVIDERS: PCP Family Medicine; Visit Provider Internal Medicine
DX: I35.0 Nonrheumatic aortic (valve) stenosis (principal); I35.1 Nonrheumatic aortic (valve) insufficiency; R00.1 Bradycardia, unspecified; R06.02 Shortness of breath; R55 Syncope and collapse; Z95.0 Presence of cardiac pacemaker; I25.118 Atherosclerotic heart disease of native coronary artery with other forms of angina pectoris; Z20.822 Contact with and (suspected) exposure to COVID-19; I10 Essential (primary) hypertension; Z79.899 Other long term (current) drug therapy
CPT/HCPCS: 36415; 80048; 82810; 85025; 93460; 99152; 99153; C1725; C1769; C1894; C9803; J1644; Q9967; U0003; U0005

== ENCOUNTER → 2021-11-29 12:55 | Outpatient (CLI) | payer MEDICARE, SELFPAY | PROVIDERS: PCP Family Medicine; Visit Provider Thoracic Surgery (Cardiothoracic Vascular Surgery) | DX: Z01.812 Encounter for preprocedural laboratory examination (principal); Z20.822 Contact with and (suspected) exposure to COVID-19; I25.10 Atherosclerotic heart disease of native coronary artery without angina pectoris | CPT/HCPCS: C9803; U0003; U0005 ==

== ENCOUNTER → 2021-12-05 14:25 | Outpatient (CLI) | payer MEDICARE, SELFPAY | PROVIDERS: PCP Family Medicine; Visit Provider Thoracic Surgery (Cardiothoracic Vascular Surgery) | DX: Z01.812 Encounter for preprocedural laboratory examination (principal); Z20.822 Contact with and (suspected) exposure to COVID-19; I25.10 Atherosclerotic heart disease of native coronary artery without angina pectoris | CPT/HCPCS: C9803; U0003; U0005 ==

== ENCOUNTER 2021-12-16 20:32 | Observation (INO) | payer MEDICARE, SELFPAY ==
--- NOTE | 2021-12-16 20:30 | PC.NURSE ---
Dr. Greer notified of triage complete and updated on pt's hx and complaints
[2021-12-16 20:31] VITALS: BP 147/83; PULSE 100; RESP 19; TEMP 37.1; O2SAT 97; BMI 33.9
--- NOTE | 2021-12-16 20:51 | XR_ITS ---
PROCEDURE INFORMATION: Exam: XR Chest Exam date and time: 12/16/2021 9:06 PM Age: 76 years old Clinical indication: Other: Dizzy; Prior surgery; Surgery date: 3-7 days post-operative; Additional info: Dizziness, recent cabg TECHNIQUE: Imaging protocol: Radiologic exam of the chest. Views: 1 view. COMPARISON: CR XR CHEST PORTABLE 07/26/2021 8:53 PM FINDINGS: Lungs: Left lung base there is probable areas of atelectasis. No consolidation. Pleural spaces: Unremarkable. No pleural effusion. No pneumothorax. Heart/Mediastinum: Midline sternotomy. Dual lead left-sided cardiac pacemaker. No cardiomegaly. Bones/joints: Unremarkable. IMPRESSION: No acute findings.
--- NOTE | 2021-12-16 20:55 | ECG_ITS ---
APPROVED REPORT Exam: Resting ECG HR:81 bpm ECG Measurements Heart Rate 81 AXES AZ 241 P 252 QRSd 165 QRS -37 QT 432 T 122 QTc 469 Conclusion ELECTRONIC ATRIAL PACEMAKER ELECTRONIC VENTRICULAR PACEMAKER ABNORMAL RHYTHM ECG UNCONFIRMED REPORT Electronically signed by : Tavares Rice MD 12/19/2021 16:01:02
[2021-12-16 21:04] LABS: Alanine Aminotransferase 33 U/L (12-78); Albumin Level 3.2 g/dl (3.5-5.0); Alkaline Phosphatase 119 U/L (38-126); Anion Gap 10.6 mEq/L (5-15); Aspartate Amino Transferase 41 U/L (17-59); Bilirubin,Total 0.3 mg/dl (0.2-1.3); Blood Urea Nitrogen 27 mg/dl (9-20); Calcium 7.9 mg/dl (8.4-10.2); Carbon Dioxide 30 mmol/L (22.0-30.0); Chloride 99 mmol/L (98-107); Creatinine Clearance Estimated 72 mL/min (50-200); Estimated Glomerular Filt Rate 59 ml/min (>60); GFR (African American) 71 ML/MIN (>60); Globulin 3.1 g/dL (1.3-3.2); Glucose 141 mg/dl (74-100); Potassium 3.6 mmoL/L (3.5-5.1); Sodium 136 mmol/L (136-145); Total Protein,Serum 6.3 g/dl (6.3-8.2)
--- NOTE | 2021-12-16 21:08 | HMH.EDDIZZ ---
Discharge Plan Disposition Patient Disposition: Admitted as Observation Chief Complaint: Dizziness Prescriptions Prescriptions: No Action furosemide 40 mg tablet 40 mg PO DIRECTED atorvastatin 80 mg tablet 80 mg PO DAILY hydrocodone-acetaminophen 5-325 mg tablet 1 tab PO Q6HP PRN (Reason: post op pain) metoprolol tartrate 25 mg tablet 25 mg PO DAILY Referrals Follow up/Referrals: Norma Watson MD [Primary Care Provider] - See instructions Clinical Impressions Clinical Impression: Dizziness, Pacemaker Discharge ED Provider: Roberto Greer Dizzy HPI General Chief Complaint: Dizziness Stated Complaint: Dizzy, recent 3 vessle bypass ~ 1wk ago Time Seen by Provider: 12/16/21 21:09 Mode of Arrival: EMS Source of Information: Patient Limitations: No Limitations Description of Symptoms (Recalled from ER Triage Doc. by RN): Pt c/o having an epispode of dizziness tonight (1943). States he was sitting on the sofa watching TV when it began. Report the room started spinning and then turned on its side . Pt denies any LOC or falls. He is about 1 wk post op from a 3-vessell bypass surgery. He also reports a pacemaker placed 3-4 mn ago that the wires got pulled out but [facility] . He is scheduled to follow-up with Dr. Corcoran's office 12/17. Denies any n/v/d. Denies any SOA or chest pain. Surgery site are clean, dry and intact. He states the episode lasted about 10-15 seconds and has not re-occured. History of Present Illness HPI Narrative: recent cabg surg about 1 week ago and has been home since yesterday and had episode of dizzyness w/o syncope lasted a few sec - no chest pain - at baseline now but has hx of pacemaker dysfunction complaint: dizziness Onset (ago): minute(s) Timing: sudden onset Description: room spinning History of similar episodes: No History of trauma: No Severity: moderate Associated symptoms: denies other symptoms Related Data Home Medications Medication Instructions Recorded Confirmed atorvastatin 80 mg tablet 80 mg PO DAILY High cholesterol 12/16/21 12/16/21 furosemide 40 mg tablet 40 mg PO DIRECTED fluid overload 12/16/21 12/16/21 hydrocodone 5 mg-acetaminophen 325 1 tab PO Q6HP PRN post op pain 12/16/21 12/16/21 mg tablet metoprolol tartrate 25 mg tablet 25 mg PO DAILY High blood pressure 12/16/21 12/16/21 Allergies Allergy/AdvReac Type Severity Reaction Status Date / Time No Known Allergies Allergy Verified 11/05/21 08:33 [facility] Medical History (Updated 12/16/21 @ 23:25 by Roberto Greer MD) Abnormal electrocardiography Dizziness Ex-smoker Fatigue Near syncope Second degree AV block Symptomatic bradycardia Social History Smoking Status: Never smoker alcohol intake: never substance use type: denies use current occupational status: employed Travel in the last 8 weeks: Inside the [place] household members: none housing: house current occupational exposures/hazards: No caffeine: Yes ROS Obtained: Yes All systems reviewed & no additional complaints except as documented Physical Exam General General appearance: alert Head Head exam: normocephalic Eye Eye exam: Present PERRL and EOMI; Absent scleral icterus or nystagmus ENT ENT exam: Present mucous membranes moist Neck Neck exam: Present trachea midline Respiratory Respiratory exam: Present normal lung sounds bilaterally; Absent respiratory distress Cardiovascular Cardiovascular exam: Present regular rate, systolic murmur and +S4 Abdominal Exam Abdominal exam: Present soft Extremities Exam Extremities exam: Present edema; Absent calf tenderness Neurological Exam Neurological exam: Present alert, oriented X3 and CN II-XII intact; Absent motor sensory deficit Psychiatric Psychiatric exam: Present normal affect Skin Skin exam: Absent rash Medical Decision Making Medical Records Medical records reviewed: Yes I reviewed the patient
[2021-12-16 21:13] LABS: NT Pro Brain Natriuretic Pep. 1830 pg/mL (0-450)
[2021-12-16 21:16] LABS: Troponin I 0.14 ng/ml (0.00-0.034)
[2021-12-16 21:25] LABS: Basophils # 0.1 K/mm3 (0-0.2); Basophils % 0.7 % (0.1-2.0); Eosinophils % 9.7 % (0.1-12.0); Hematocrit 40.3 % (42.0-52.0); Hemoglobin 13.2 g/dL (14.1-18.0); Lymphocytes # 1.8 K/mm3 (0.7-4.5); Lymphocytes % 17.7 % (10-50); Mean Corpuscular HGB Conc 32.7 g/dL (31.8-35.4); Mean Corpuscular Hemoglobin 31.7 pg (27.0-31.2); Mean Corpuscular Volume 96.8 fl (80-94); Mean Platelet Volume 8.2 fl (7.4-10.4); Monocytes % 9.5 % (1.7-9.3); Neutrophils # 6.4 K/mm3 (1.8-7.8); Neutrophils % 62.4 % (37.0-80.0); Platelet Count 206 K/mm3 (142-424); Red Blood Count 4.17 M/mm3 (4.60-6.20); Red Cell Distribution Width 13.9 % (11.5-17.5); White Blood Count 10.3 K/mm3 (4.8-10.8)
[2021-12-16 23:04] LABS: Coronavirus 19, PCR Not Detected (NotDetected); Influenza A, PCR Not Detected (NotDetected); Influenza B, PCR Not Detected (NotDetected)
--- NOTE | 2021-12-16 23:29 | PC.NURSE ---
Dr. Greer s/w Dr. Mares for possible admit
[2021-12-16 23:46] VITALS: BMI 33.3
[2021-12-17] VITALS (19 sets, daily range): BP systolic 118–186; BP diastolic 48–95; PULSE 86–110; RESP 16–22; TEMP 36.6–37; O2SAT 93–98; BMI 33.3
--- NOTE | 2021-12-17 | IR_ITS ---
APPROVED REPORT Patient Location: Inpatient Job Training Supervisor: RAJ Han RT (R) PROCEDURES Pocket Revision Removal of existing atrial sensing and pacing lead Placement of an atrial sensing and pacing coil into the right atrial appendage INDICATION RA Lead dislodged Informed consent was obtained prior to the procedure. COMPLICATIONS None Estimated Blood Loss: Less than 10 mls TECHNIQUE 1% Lidocaine with epinephrine used to anesthetized the left anterior aspect of the chest. Scalpel was used to dissect down tinto the fascia. The fascia was lifted to remove pacemaker from pocket. Atrial lead was disconnected from the generator, a stylet used to remove existing RA lead from the body. The patient was then placed in Trendelenburg position and the subclavian vein was accessed via the Selinger technique. A 6 Kiswahili sheath was placed under fluoroscopic guidance into the subclavian vein over one of the wires while keeping the other wire in place within the subclavian vein. The dilator was removed from the sheath. Using fluoroscopic guidance, the ventricular lead was placed into the right atrial appendage and screwed and secured in place. Electrical interrogation demonstrated acceptable thresholds and voltage number. The atrial lead was then secured into place using 3-0 silk. 1 gram of Ancef was used to flush the pocket. Following the pacemaker generator being secured to the fascia and in place, Monocryl was used to close the subcutaneous layers while yaniv were used to close the cutaneous layer. A pressure dressing was placed and the patient was transferred to the postop holding area in stable condition for postoperative care. INTERROGATION Extracted Atrial lead model number: Ingevity+ 52cm, 7841 Extracted Atrial lead serial number: [id number] Implanted Atrial lead model number: Ingevity+ 52cm, 7841 Implanted Atrial lead serial number: [id number] P-wave: 3.5 mV Impedence: 518 ohms Threshold: 1.0V@0.4ms No diaphragmatic stimulation at 10 volts. IMPRESSION Successful Pocket Revision Successful Removal of existing atrial sensing and pacing lead Successful Placement of an atrial sensing and pacing coil into the right atrial appendage PLAN 1. Follow up office visit, post op wound care Electronically signed by : Mauricio Corcoran MD 12/19/2021 14:01:34
--- NOTE | 2021-12-17 00:24 | PC.NURSE ---
PT ARRIVED TO FLOOR VIA WHEELCHAIR AT THIS TIME
--- NOTE | 2021-12-17 05:08 | PC.NURSE ---
pt admitted this shift. has had no c/o dizziness, cp, soa. paced on tele. remains on ra. npo since midnight. ns infusing at 50ml/hr. he is a&oX4. no needs at this time.
[2021-12-17 06:43] LABS: Basophils # 0.1 K/mm3 (0-0.2); Basophils % 0.8 % (0.1-2.0); Eosinophils # 0.8 K/mm3 (0.0-0.4); Eosinophils % 8.4 % (0.1-12.0); Hematocrit 39.9 % (42.0-52.0); Hemoglobin 12.6 g/dL (14.1-18.0); Lymphocytes # 1.7 K/mm3 (0.7-4.5); Lymphocytes % 17.2 % (10-50); Mean Corpuscular HGB Conc 31.5 g/dL (31.8-35.4); Mean Corpuscular Hemoglobin 31.2 pg (27.0-31.2); Mean Platelet Volume 8.1 fl (7.4-10.4); Monocytes # 0.9 K/mm3 (0.1-1.0); Neutrophils # 6.3 K/mm3 (1.8-7.8); Neutrophils % 64.7 % (37.0-80.0); Platelet Count 169 K/mm3 (142-424); Red Blood Count 4.03 M/mm3 (4.60-6.20); White Blood Count 9.7 K/mm3 (4.8-10.8)
[2021-12-17 06:49] LABS: Anion Gap 10.5 mEq/L (5-15); Blood Urea Nitrogen 23 mg/dl (9-20); Calcium 7.7 mg/dl (8.4-10.2); Carbon Dioxide 25 mmol/L (22.0-30.0); Chloride 104 mmol/L (98-107); Creatinine Clearance Estimated 85 mL/min (50-200); Estimated Glomerular Filt Rate 73 ml/min (>60); GFR (African American) 88 ML/MIN (>60); Glucose 106 mg/dl (74-100); Potassium 3.5 mmoL/L (3.5-5.1); Sodium 136 mmol/L (136-145)
--- NOTE | 2021-12-17 07:26 | P.CONPHA_ITS ---
[facility] Pharmacy VTE Monitoring Patient Demographics Admission date: 12/17/21 Report Date: 12/17/21 Time: 07:27 Patient Allergies No Known Allergies Allergy (Verified 11/05/21 08:33) Height: 1.68 m Weight: 94.035 kg Current Active Problems (Updated 12/16/21 @ 23:25 by Roberto Greer MD) Pacemaker (Acute) Dizziness (Acute) VTE Risk Labs: VTE Related Lab Results Hgb 12.6 g/dL (14.1-18.0) L 12/17/21 06:16 Hct 39.9 % (42.0-52.0) L 12/17/21 06:16 Plt Count 169 K/mm3 (142-424) 12/17/21 06:16 BUN 23 mg/dl (9-20) H 12/17/21 06:16 Creatinine 1.00 mg/dl (0.66-1.25) 12/17/21 06:16 Estimated Creat Clear 85 mL/min (50-200) 12/17/21 06:16 VTE Risk Level: Low Risk Clinical Trial Participant: No Prophylaxis VTE Prophylaxis Ordered?: Yes Types of VTE Prophylaxis: TEDS Knee High
--- NOTE | 2021-12-17 08:16 | CA_ITS ---
APPROVED REPORT EXAM: Comprehensive 2D, Doppler, and color-flow Echocardiogram Gang Punch Operator: Yolanda Ledezma, RCS, RVS Ht: 5 ft 6 in Wt: 207lbs BSA: 2.03 HR: 103 bpm BP: 147/83 mmHg Indications: CABG, Dizziness, AVR 1 week ago , Pacer dysfunction 2D Dimensions IVSd 0.72 cm LVEF (Visual) 71.50 % PWd 1.05 cm LA Volume 61.80 mL LVDd 4.30 cm LA Volume Index 30.40 mL/m2 (M/F) 16-34 LVDs 2.56 cm Aortic Root 2.18 cm Left Atrium 4.38 cm LVOT 1.97 cm (M/F) 1.5-2.5 M-Mode Dimensions LA Diam 4.31 cm (1.9-4.0) Ao Diam 3.51 cm (2.0-3.7) EPSs 0.22 cm TAPSE 0.75 (<1.7) LV Diastology E Decel Time 103.00 (160-240 msec) E/A Ratio 8.13 MED E' 12.30 (< 7 cm/sec) MED A' 6.70 cm/s E'/MED E' Ratio 14.74 (>14) LAT E' 16.30 (<10 cm/sec) LAT A' 5.40 cm/s E/LAT E' Ratio 11.12 (>14) Aortic Valve LVOT Max 138.00 (70-110 cm/s) LVOT VTI 19.88 cm AoV Peak Brian. 208.00 (50-130 cm/s) AO Peak GR. 17.20 mmHg AO Mean GR. 8.50 (<5 mmHg) AO VTI 28.39 (18-25 cm) HOLLAND (VTI) 2.13 (2.5-4.5 cm2) Mitral Valve MV A Velocity 22.00 (40-130 cm/s) E/A Ratio 8.13 MV Decel. Time 103.00 (160-240 ms) MV Mean Gr. 6.00 (<2mmHg) MV PHT 30.00 ms Pulmonary Valve PV Peak Velocity 128.00 (50-150 cm/s) NY End VMAX 199.00 cm/s Tricuspid Valve TR P. Velocity 287.00 cm/s RAP Estimate 10.00 mmHg RVSP 42.90 mmHg Left Ventricle Technically difficult study because of the patient factors and poor acoustic windows. Left atrium is mildly enlarged, left ventricle is normal size, estimated ejection fraction approximately 50%, there is marked abnormal septal motion. Diastolic parameters are inconclusive. Right Ventricle Right atrium and right ventricle are mildly enlarged with normal contractility, there is pacemaker lead seen in right ventricle. Aortic Valve There is bioprosthetic valve noted in the aortic position valve is well-seated, the gradient across the valve is acceptable range, there is no aortic insufficiency. Mitral Valve Mitral valve has mitral calcification, there is no mitral stenosis, there is mild mitral regurgitation. Tricuspid Valve Tricuspid valve grossly normal, there is mild tricuspid regurgitation, calculated right ventricular systolic pressure is 40 mmHg. Pulmonic Valve Pulmonic valve is poorly visualized. Great Vessels Aortic root is normal size. Inferior vena cava is poorly visualized. Pericardium No significant pericardial effusion noted. Conclusion 1. Technically difficult study because of the patient factors and poor acoustic windows. Mild biatrial enlargement, normal left ventricular size, estimated ejection fraction 50%, there is mild abnormal septal motion. Diastolic parameters are inconclusive. 2. Normal functioning bioprosthetic valve in the aortic position. 3. No significant pericardial effusion noted. 4. Mild tricuspid regurgitation, calculated right ventricular systolic pressure is 40 mmHg. 5. Inferior vena cava is poorly visualized. Electronically signed by : Clemente Parson MD 12/18/2021 07:33:11
--- NOTE | 2021-12-17 08:18 | EXP.CARD.CON ---
History of Present Illness History of Present Illness Consult date: 12/17/21 Requesting physician: Haroldo Mares Chief complaint: Dizziness, near syncope, pacer lead dislodgement during CABG/AVR Additional Medical History:: 1. Ex-smoker, discontinued approximately 1999 A. CTA of the chest 06/2021 shows emphysema 2. Symptomatic bradycardia with near syncope, 06/2021 A. [employer] dual-chamber pacemaker implantation, 07/17/2021 B. Pacemaker wire dislodgment with subsequent repositioning at the [facility], 07/2021 C. Pacemaker wire dislodgment perioperatively for CABG and AVR. 11/2021 3. History of hypertension A. Echocardiogram, 06/2021, mild biatrial enlargement, normal LV size with mild concentric LVH, EF 55%. No regional wall motion abnormalities. Thickened and calcified aortic valve with likely severe aortic stenosis. Mild MR TR. 4. Aortic stenosis A. [facility], 10/11/2021, biatrial enlargement, normal LV size with mild concentric LVH. EF 55%. Aortic valve area 0.63 cm?. Moderate AI noted. Moderate MR and TR noted. B. Status post bovine aortic valve placement, 11/2021 5. Coronary artery disease A. [facility], 10/28/2021, severe 2-3 vessel coronary artery disease with recommendation for CABG accompanied by aortic valve replacement. Preserved EF. Moderate aortic stenosis. B. CABG/AVR, 11/2021 6. Hyperlipidemia, on statin History of present illness: 76-year-old white male with recent bypass and aortic valve replacement last week with subsequent lead dislodgment presented to the emergency department yesterday for an episode of dizziness while sitting and watching TV described as the room spinning. No chest pain and no syncopal episode. EMS was activated and patient was brought to the hospital for evaluation and subsequent observation. Patient denies any further episodes of dizziness overnight. EKG shows what appears to be dual-chamber pacing with capture. Telemetry shows paced rhythm with occasional ectopy. PFSH PFS Medical History (Updated 12/17/21 @ 08:27 by ELIZABETH Shi) Abnormal electrocardiography Dizziness Ex-smoker Fatigue Near syncope Second degree AV block Symptomatic bradycardia Family History (Updated 12/17/21 @ 00:45 by Darlyn Walsh RN) Heart attack Family history of diabetes mellitus type II Social History (Updated 12/17/21 @ 00:46 by Darlyn Walsh RN) Smoking Status: Never smoker alcohol intake: never substance use type: denies use current occupational status: employed Travel in the last 8 weeks: [place] the [place] household members: none housing: house current occupational exposures/hazards: No caffeine: Yes Review of Systems Review of Systems Review of systems:: pertinent systems reviewed and negative unless documented below ENT Ears, Nose, Mouth, and Throat: Reports vertigo *Cardiovascular Cardiovascular: Denies chest pain and Denies dyspnea *Respiratory Respiratory: Denies dyspnea *Neurologic Neurologic: Reports vertigo Exam Data for Last 24 hours Vital signs and Labs for Last 24 Hours: Temp Pulse Resp BP Pulse Ox 98.3 F 104 H 16 142/76 H 95 12/17/21 08:00 12/17/21 08:00 12/17/21 08:00 12/17/21 08:00 12/17/21 08:00 Laboratory Results - last 24 hr 12/16/21 20:40: Sodium 136, Potassium 3.6, Chloride 99, Carbon Dioxide 30, Anion Gap 10.6, BUN 27 H, Creatinine 1.20, Estimated Creat Clear 72, Estimated GFR 59, Est GFR ( Amer) 71, Glucose 141 H, Calcium 7.9 L, Total Bilirubin 0.3, AST 41, ALT 33, Alkaline Phosphatase 119, Troponin I 0.14 H, Total Protein 6.3, Albumin 3.2 L, Globulin 3.1, Albumin/Globulin Ratio 1.0 L 12/16/21 20:40: WBC 10.3, RBC 4.17 L, Hgb 13.2 L, Hct 40.3 L, MCV 96.8 H, MCH 31.7 H, MCHC 32.7, RDW 13.9, Plt Count 206, MPV 8.2, Neut % (Auto) 62.4, Lymph % (Auto) 17.7, Rabun % (Auto) 9.5 H, Eos % (Auto) 9.7, Baso % (Auto) 0.7, Neut # (Auto) 6.4, Lymph # (Auto) 1.8, Rabun # (Auto) 1.0, Eos # (Auto) 1.
--- NOTE | 2021-12-17 09:27 | HMH.PHAINT1 ---
Pharmacy Intervention Comments: HOME MEDICATION RECONCILIATION COMPLETED USING OUTPATIENT PHARMACY LIST.
--- NOTE | 2021-12-17 09:31 | EXP.HP ---
History of Present Illness *Admission Date: 12/17/21 *Reason for visit:: Dizziness *History of present illness: 76-year-old white male with recent bypass and aortic valve replacement last week with subsequent lead dislodgment presented to the emergency department yesterday for an episode of dizziness while sitting and watching TV described as the room spinning.? No chest pain and no syncopal episode.? EMS was activated and patient was brought to the hospital for evaluation and subsequent observation. Patient denies any further episodes of dizziness overnight.? EKG shows what appears to be dual-chamber pacing with capture.? Telemetry shows paced rhythm with occasional ectopy. The above as per cardiology. Patient denies having any associated chest pain, nausea or shortness of breath with the dizziness. With evaluation in the emergency room he did receive a liter of IV fluids. He was scheduled to see Dr. Corcoran today for pacemaker malfunction. He was thus admitted due to The dizziness and previous pacer malfunction. This a.m. patient denies chest pain and shortness of breath. He is n.p.o. for possible procedure. Cardiology has seen the patient with the following plan.: 1.? Dizziness/near syncope with recent pacemaker lead dislodgment during CABG/AVR surgery last week.? Will obtain echocardiogram to evaluate left ventricular ejection fraction prior to planned repositioning of lead(s) to decide if upgrade to biventricular pacemaker is needed. 2.? CAD with history of aortic valve stenosis/insufficiency status post CABG with bovine aortic valve placement last week.? Clinically stable 3.? Pacemaker in situ 4.? Ex-smoker [facility] Medical History Abnormal electrocardiography Dizziness Ex-smoker Fatigue Near syncope Second degree AV block Symptomatic bradycardia Family History Other Family history of diabetes mellitus type II Heart attack Social History Smoking Status: Never smoker alcohol intake: never substance use type: denies use current occupational status: employed Travel in the last 8 weeks: [place] the [place] household members: none housing: house current occupational exposures/hazards: No caffeine: Yes Review of Systems Constitutional Constitutional: Denies fever(s) and Denies headache(s) Eyes Eyes: Denies change in vision ENT Ears, Nose, Mouth, and Throat: Denies otalgia, Denies headache(s), Reports sore throat (From intubation with surgery) and Reports vertigo *Cardiovascular Cardiovascular: Denies chest pain, Denies dyspnea and Denies leg edema *Respiratory Respiratory: Denies chest congestion, Denies cough and Denies dyspnea *Gastrointestinal Gastrointestinal: Denies abdominal pain, Denies bloating, Denies constipation, Denies cramping, Denies heartburn, Denies nausea and Denies vomiting *Genitourinary Genitourinary: Denies difficulty urinating *Musculoskeletal Musculoskeletal: Denies abnormal gait *Neurologic Neurologic: Denies abnormal gait, Denies confusion, Denies convulsions, Denies headache(s) and Reports vertigo Psychiatric Psychiatric: Denies confusion Meds Home Medications and Allergies Home Medications Medication Instructions Recorded Confirmed Type atorvastatin 80 mg tablet 80 mg PO DAILY High cholesterol 12/16/21 12/16/21 History furosemide 40 mg tablet 40 mg PO DIRECTED fluid overload 12/16/21 12/16/21 History hydrocodone 5 mg-acetaminophen 325 1 tab PO Q6HP PRN post op pain 12/16/21 12/16/21 History mg tablet metoprolol tartrate 25 mg tablet 25 mg PO BID High blood pressure 12/16/21 12/17/21 History New Prescriptions to Start Prescriptions: Allergies Allergy/AdvReac Type Severity Reaction Status Date / Time No Known Allergies Allergy Verified 11/05/21 08:33 Exam Data for Last 24 hours
--- NOTE | 2021-12-17 11:21 | PC.NURSE ---
Vaccines Discontinued Medications Sodium Chloride (Sod Chlor 0.9% 1000ml Bag) 1,000 mls @ 999 mls/hr IV .Q1H1M ROMAN Stop: 12/16/21 22:00 Last Admin: 12/16/21 21:00 Dose: 999 mls/hr Documented By: ANGELITA Sodium Chloride (Sod Chlor 0.9% 1000ml Bag) 1,000 mls @ 50 mls/hr IV .Q20H ROMAN Stop: 01/15/22 22:59 Last Admin: 12/16/21 23:24 Dose: 50 mls/hr Documented By: HERBERT
--- NOTE | 2021-12-17 11:46 | P.PN_ITS ---
PFSH PFS Medical History Abnormal electrocardiography Dizziness Ex-smoker Fatigue Near syncope Second degree AV block Symptomatic bradycardia Family History Other Family history of diabetes mellitus type II Heart attack Social History Smoking Status: Never smoker alcohol intake: never substance use type: denies use current occupational status: employed Travel in the last 8 weeks: Inside the [employer] [place] household members: none housing: house current occupational exposures/hazards: No caffeine: Yes [facility] Anesthesia Checklist Patient Identification Patient Identification: Arm Band and Verbal (Name & ) Structural Data Admitted From: Inpatient Planned Operative Procedure/s: Pacemaker lead revision Consent for Planned Operative Procedure(s) Verified: Yes NPO Status Verified Time NPO: 00:00 Additional verifications Anesthesia Reactions: No Hx Blood Transfusions: No Blood Transfusion Reaction: No Airway Assessment C-Spine Mobility Assessed: Yes TMJ Mobility Assessed: Yes Neurological Assessment Level of Consciousness: Awake Hx Seizures: No Numbness or tingling in extremities: No Anesthesia Plan Anesthesia Risk discussed: Yes Anesthesia Plan: Verified ASA Class: IV Anesthesia Type: MAC
--- NOTE | 2021-12-17 13:33 | PC.NURSE ---
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
--- NOTE | 2021-12-17 14:43 | XR_ITS ---
FINAL REPORT CLINICAL HISTORY: post lead revision COMPARISON: One day prior FINDINGS: Interval revision of dual lead left subclavian pacemaker with leads projecting over the right ventricle and right atrium. The heart size is normal. The mediastinum is normal. Lungs are clear. There are no pleural effusions. There is no pneumothorax. There is no osseous abnormality. IMPRESSION: No acute cardiopulmonary process. No pneumothorax. Reviewed, Interpreted and Dictated by Josiah Bonds MD Transcribed by Matt Boyd Authenticated and [facility]
--- NOTE | 2021-12-17 14:59 | SUR.PHASEII ---
anterior chest wall dressing c/d/i.
--- NOTE | 2021-12-17 17:58 | ECG_ITS ---
APPROVED REPORT Exam: Resting ECG HR:93 bpm ECG Measurements Heart Rate 93 AXES FL 223 P 48 QRSd 166 QRS -56 QT 413 T 95 QTc 463 Conclusion ELECTRONIC VENTRICULAR PACEMAKER ABNORMAL RHYTHM ECG UNCONFIRMED REPORT Electronically signed by : Tavares Rice MD 12/19/2021 15:58:40
--- NOTE | 2021-12-17 19:28 | PC.NURSE ---
Pt appeared to have st elevation on tele, ekg obtained and ELIZABETH Winn and Dr. Corcoran agreed that it was ok, it showed ventricular pacer, no st elevation on EKG. Pt denies any chest pain, except with movement. Pt continues to splint chest with pillow. Pacer dsg cdi to L chest, with slight edema, unchanged since coming back from lab rep. BP has been slightly elevated this afternoon, Virginia Castillo made aware and ordered asa per may, norvasc per may as well as metoprolol per may. VSS at this time. CB in reach.
[2021-12-18] VITALS: BP 136/84; PULSE 90; PULSE 91; RESP 19; TEMP 36.7; O2SAT 97
[2021-12-18 04:00] VITALS: BP 135/68; PULSE 87; PULSE 90; RESP 17; TEMP 36.8; O2SAT 95
--- NOTE | 2021-12-18 05:09 | PC.NURSE ---
pt has rested well t/o the night. a&ox4. ambulated to and from the bathroom with standby assistance. no complaints of pain. CB in reach.
[2021-12-18 05:17] VITALS: BMI 33.3
--- NOTE | 2021-12-18 07:52 | EXP.PN ---
Subjective *Date: 12/18/21 *Time: 09:09 Interval history: Feeling well and ready to go home. He had the pacemaker procedure with repositioning of wires completed yesterday without complications. He is eating without difficulty. He has been up in a chair. He has a minimal cough. ECHO results from 12/17/2021: Conclusion 1.? Technically difficult study because of the patient factors and poor acoustic windows.? Mild biatrial enlargement, normal left ventricular size, estimated ejection fraction 50%, there is mild abnormal septal motion.? Diastolic parameters are inconclusive. 2.? Normal functioning bioprosthetic valve in the aortic position. 3.? No significant pericardial effusion noted. 4.? Mild tricuspid regurgitation, calculated right ventricular systolic pressure is 40 mmHg. 5.? Inferior vena cava is poorly visualized. Exam Data for Last 24 hours Vital signs and Labs for Last 24 Hours: Temp Pulse Resp BP Pulse Ox 98.3 F 87 17 135/68 95 12/18/21 04:00 12/18/21 04:00 12/18/21 04:00 12/18/21 04:00 12/18/21 04:00 I & O for Last 24 hours: Intake & Output 12/15/21 12/16/21 12/17/21 12/18/21 11:59 11:59 11:59 11:59 Intake Total 590 / 590 480 / 480 Output Total 550 / 550 2800 / 2800 Balance 40 / 40 -2320 / -2320 Weight 207 lb 5 oz 207 lb 3.752 oz Constitutional Constitutional: no acute distress *Routine Respiratory Exam Respiratory: Present CTA bilaterally *Routine Cardiovascular Exam Cardiovascular: Present RRR (Monitor showing sinus rhythm) *Routine Abdominal Exam Abdominal: Present soft and normoactive bowel sounds; Absent tenderness *Routine Extremities Exam Extremities: Present edema (Trace bilaterally) *Routine Neurological Exam Neurological: Present alert and oriented X3 Assessment and Plan *Assessment and plan (1) Displacement of atrial pacemaker leads: Status: Acute Category: Medical Code(s): T82.120A - Displacement of cardiac electrode, initial encounter (2) S/P CABG (coronary artery bypass graft): Status: Acute Category: Surgical Code(s): Z95.1 - Presence of aortocoronary bypass graft (3) S/P AVR (aortic valve replacement): Status: Acute Category: Surgical Code(s): Z95.2 - Presence of prosthetic heart valve (4) Near syncope: Status: Acute Category: Medical Code(s): R55 - Syncope and collapse (5) Adjustment and management of cardiac pacemaker: Status: Acute Category: Medical Code(s): Z45.018 - Encounter for adjustment and management of other part of cardiac pacemaker Plan Patient is stable to be discharged home. Follow-up with cardiology in a week. Patient seen and examined. Concur with above. /Dr. Mares
[2021-12-18 07:56] VITALS: BP 132/68; PULSE 88; RESP 16; TEMP 36.6; O2SAT 93
--- NOTE | 2021-12-18 08:11 | P.PN_ITS ---
Subjective Subjective Date: 12/18/21 Time: 08:11 Principal diagnosis: Symptomatic bradycardia Interval history: 76-year-old white male admitted for symptomatic bradycardia after pacemaker lead dislodgment during coronary bypass surgery. Both atrial and ventricular pacemaker leads were repositioned yesterday. Telemetry shows tejon conduction above the ventricular paced threshold of 70 bpm. Patient is anxious to go home Exam Data for Last 24 hours Vital signs and Labs for Last 24 Hours: Temp Pulse Resp BP Pulse Ox 97.9 F 88 16 132/68 93 L 12/18/21 07:56 12/18/21 07:56 12/18/21 07:56 12/18/21 07:56 12/18/21 07:56 I & O for Last 24 hours: Intake & Output 12/15/21 12/16/21 12/17/21 12/18/21 11:59 11:59 11:59 11:59 Intake Total 590 / 590 840 / 840 Output Total 550 / 1350 2800 / 2800 Balance 40 / -760 -1960 / -1960 Weight 207 lb 5 oz 207 lb 3.752 oz Constitutional Constitutional: no acute distress *Routine Respiratory Exam Respiratory: Present CTA bilaterally *Routine Cardiovascular Exam Cardiovascular: Present RRR Progress Note: A&P Assessment and plan (1) S/P CABG (coronary artery bypass graft): Status: Acute (2) S/P AVR (aortic valve replacement): Status: Acute (3) Near syncope: Status: Acute (4) Displacement of atrial pacemaker leads: Status: Acute Assessment and Plan Assessment and Plan for All Diagnoses:: Status post atrial and ventricular lead repositioning. Recent CABG with AVR Clinically stable from a cardiac standpoint for discharge home. Resume home medications of aspirin 81 mg daily, atorvastatin 40 mg daily, furosemide 40 mg as directed, lisinopril HCTZ 1 tablet daily and metoprolol tartrate 25 mg twice daily. Follow-up in our office in 1 week
[2021-12-18 11:03] VITALS: BP 124/69; PULSE 89; RESP 17; TEMP 36.8; O2SAT 95
--- NOTE | 2021-12-19 11:45 | CARE MANAGER ---
Attempted to contact patient related to hospital discharge, but patient does not have a working number. MAYA Bales
--- NOTE | 2021-12-22 22:44 | EXP.DC.SUM ---
General Admission date:: 12/17/21 Discharge date: 12/18/21 HPI HPI HPI: 76-year-old white male with recent bypass and aortic valve replacement last week with subsequent lead dislodgment presented to the emergency department yesterday for an episode of dizziness while sitting and watching TV described as the room spinning.? No chest pain and no syncopal episode.? EMS was activated and patient was brought to the hospital for evaluation and subsequent observation. Patient denies any further episodes of dizziness overnight.? EKG shows what appears to be dual-chamber pacing with capture.? Telemetry shows paced rhythm with occasional ectopy. The above as per cardiology. Patient denies having any associated chest pain, nausea or shortness of breath with the dizziness. With evaluation in the emergency room he did receive a liter of IV fluids. He was scheduled to see Dr. Corcoran today for pacemaker malfunction. He was thus admitted due to The dizziness and previous pacer malfunction. This a.m. patient denies chest pain and shortness of breath. He is n.p.o. for possible procedure. Cardiology has seen the patient with the following plan.: 1.? Dizziness/near syncope with recent pacemaker lead dislodgment during CABG/AVR surgery last week.? Will obtain echocardiogram to evaluate left ventricular ejection fraction prior to planned repositioning of lead(s) to decide if upgrade to biventricular pacemaker is needed. 2.? CAD with history of aortic valve stenosis/insufficiency status post CABG with bovine aortic valve placement last week.? Clinically stable 3.? Pacemaker in situ 4.? Ex-smoker Hospital Course Hospital Course Hospital Course: The patient was admitted and was seen by cardiology. They wanted to do a pacemaker revision. The patient had the pacemaker procedure with repositioning of the wires without complications. He was able to sit up in a chair and wanted to go home. His echo showed an EF of 50% with a right ventricular systolic pressure of 40 mmHg. The patient was stable to discharge home and follow-up with cardiology. Exam Data for Last 24 hours Vital signs and Labs for Last 24 Hours: Temp Pulse Resp BP Pulse Ox 98.3 F 89 17 124/69 95 12/18/21 11:03 12/18/21 11:03 12/18/21 11:03 12/18/21 11:03 12/18/21 11:03 Narrative: Constitutional Constitutional: no acute distress *Routine HEENT Exam Head: Present normocephalic and atraumatic Eye: Present PERRL; Absent conjunctival icterus, scleral injection or conjunctivae pink ENT: Present mucous membranes moist and oropharynx clear *Routine Neck Exam Neck: Present supple and full ROM; Absent lymphadenopathy, thyromegaly or tenderness Routine Chest/Breast/Axilla Exam Chest wall: Present tenderness (Healing midline chest surgical site) and pacemaker *Routine Respiratory Exam Respiratory: Present crackles (Few scattered posteriorly) *Routine Cardiovascular Exam Cardiovascular: Present RRR (Sinus rhythm on monitor) *Routine Abdominal Exam Abdominal: Present soft, normoactive bowel sounds and obese; Absent tenderness *Routine Rectal Exam Rectal:: deferred *Routine Genitalia Exam Genitalia:: deferred *Routine Extremities Exam Extremities: Present edema (Trace bilateral) *Routine Neurological Exam Neurological: Present alert and oriented X3 DS: Diagnosis Discharge Diagnosis (1) Displacement of atrial pacemaker leads: Status: Acute (2) S/P CABG (coronary artery bypass graft): Status: Acute (3) S/P AVR (aortic valve replacement): Status: Acute (4) Near syncope: Status: Acute (5) Adjustment and management of cardiac pacemaker: Status: Acute Meds Home Medications and Allergies Home Medications Medication Instructions Recorded Confirmed Type atorvastatin 80 mg tablet 40 mg PO DAILY High cholesterol 12/16/21 12/17/21 History furosemide 40 mg tablet 40 mg PO DIRECTED fluid overload 12/16/21 12/16/21 History hydrocodone 5 mg-acet
== END 2021-12-18 11:25 | disposition home or self-care (01) ==
LOC: ER 23:25 → 2ND 23:39
PROVIDERS: Internal Medicine; Admitting Provider Family Medicine; Emergency Provider Emergency Medicine; PCP Family Medicine; Visit Provider Family Medicine
DX: T82.120A Displacement of cardiac electrode, initial encounter (principal); I25.118 Atherosclerotic heart disease of native coronary artery with other forms of angina pectoris; Z87.891 Personal history of nicotine dependence; Z79.899 Other long term (current) drug therapy; Z95.1 Presence of aortocoronary bypass graft; Z95.2 Presence of prosthetic heart valve; R06.9 Unspecified abnormalities of breathing; I44.1 Atrioventricular block, second degree; Z20.822 Contact with and (suspected) exposure to COVID-19
CPT/HCPCS: G0378; 33215; 36415; 71045; 80048; 80053; 83880; 84484; 85025; 93005; 93306; 99285; C1898; C9803; J2704; U0003; U0005

== ENCOUNTER → 2022-03-25 12:47 | Outpatient (CLI) | payer MEDICARE, SELFPAY ==
--- NOTE | 2022-03-25 12:50 | CA_ITS ---
APPROVED REPORT EXAM: Comprehensive 2D, Doppler, and color-flow Echocardiogram Security System Technician: Yolanda Ledezma, RCS, RVS Ht: 5 ft 6 in Wt: 205lbs BSA: 2.02 BP: 110/54 mmHg Indications: AVR 11/2021, pacer, cabg. ex-smoker, murmur Echo Enhancing Agent Comments: Poor acoustic windows 2D Dimensions IVSd 0.76 cm LVEF (Visual) 56.80 % PWd 0.80 cm LVDd 3.99 cm LVDs 2.82 cm Aortic Root 2.52 cm Left Atrium 5.12 cm LVOT 1.96 cm (M/F) 1.5-2.5 M-Mode Dimensions RVDd 2.50 cm (0.9-2.6) LA Diam 5.06 cm (1.9-4.0) LVDd 3.66 cm (3.5-5.7) Ao Diam 2.58 cm (2.0-3.7) LVDs 2.72 cm (3.5-5.7) IVSd 0.72 cm (0.6-1.1) PWd 1.13 cm (0.6-1.1) EF (Teich) 51.40% EPSs 0.31 cm FS 25.70% EDV (Teich) 56.60 mL TAPSE 1.43 (<1.7) ESV (Teich) 27.50 mL LV Diastology E Decel Time 183.00 (160-240 msec) E/A Ratio 1.18 MED E' 4.90 (< 7 cm/sec) MED A' 10.80 cm/s E'/MED E' Ratio 22.96 (>14) LAT E' 5.30 (<10 cm/sec) LAT A' 9.10 cm/s E/LAT E' Ratio 21.23 (>14) Aortic Valve LVOT Max 97.00 (70-110 cm/s) LVOT VTI 16.61 cm AoV Peak Brian. 169.00 (50-130 cm/s) AO Peak GR. 11.40 mmHg AO Mean GR. 5.70 (<5 mmHg) AO VTI 31.98 (18-25 cm) HOLLAND (VTI) 1.57 (2.5-4.5 cm2) Mitral Valve MV A Velocity 95.00 (40-130 cm/s) E/A Ratio 1.18 MV Decel. Time 183.00 (160-240 ms) MV PHT 57.00 ms Pulmonary Valve PV Peak Velocity 114.00 (50-150 cm/s) Tricuspid Valve TR P. Velocity 249.00 cm/s RAP Estimate 10.00 mmHg RVSP 34.80 mmHg Left Ventricle Left atrium is mildly enlarged, left ventricle is normal in size, mild concentric left ventricular hypertrophy, estimated ejection fraction 55% with no regional wall motion abnormality, grade 2 diastolic dysfunction seen with tissue Doppler evidence of raise left atrial pressure. Right Ventricle Right atrium and right ventricle are mildly enlarged with normal contractility, pacemaker leads in the right ventricle. Aortic Valve There is bioprosthetic valve noted in the aortic position, valve is well-seated, the gradient across the valve is within acceptable range. There is no aortic insufficiency. Mitral Valve Mitral valve has mitral annular calcification, leaflets are minimally thickened, there is no mitral stenosis, there is mild mitral regurgitation. Tricuspid Valve Tricuspid valve is grossly normal, there is mild tricuspid regurgitation, tricuspid regurgitation jet velocity is inadequate for calculation of the right ventricular systolic pressure. Pulmonic Valve Pulmonic valve is poorly visualized. Great Vessels Aortic root is normal size. Inferior vena cava is poorly visualized. Pericardium No significant pericardial effusion noted. Conclusion 1. Biatrial enlargement, normal left ventricular size, estimated ejection fraction 55% with no regional wall motion abnormality, grade 2 diastolic dysfunction seen with tissue Doppler evidence of raise left atrial pressure. 2. Mildly enlarged right ventricle with normal contractility. 3. Normal functioning bioprosthetic valve in the aortic position. 4. Mild mitral and tricuspid regurgitation. 5. No significant pericardial effusion. 6. Inferior vena cava is poorly visualized. Electronically signed by : Clemente Parson MD 03/25/2022 20:12:54
== END ==
LOC: RT 12:49
PROVIDERS: PCP Family Medicine; Visit Provider Physician Assistant
DX: R94.31 Abnormal electrocardiogram [ECG] [EKG] (principal)
CPT/HCPCS: 93306

== ENCOUNTER 2023-04-14 10:53 | Outpatient (CLI) | payer MEDICARE, SELFPAY ==
--- NOTE | 2023-04-14 10:58 | CA_ITS ---
APPROVED REPORT EXAM: Comprehensive 2D, Doppler, and color-flow Echocardiogram Sociology Faculty Member: Renee Vazquez CRT Ht: 5 ft 6 in Wt: 216lbs BSA: 2.07 BP: 174/84 mmHg Indications: AVR 9-22, PACER, CABG, SOB EX SMOKER 2D Dimensions Left Atrium 4.58 cm LVEF (Rojo's) 40.60 % LVOT 1.90 cm (M/F) 1.5-2.5 LV Volume 96.70 mL LA Volume 31.90 mL LA Volume Index 15.40 mL/m2 (M/F) 16-34 EF AP4 39.40 % EF AP2 46.2 % EF BP 40.6 % GL Strain -16.1 % M-Mode Dimensions RVDd 3.02 cm (0.9-2.6) LVDd 4.26 cm (3.5-5.7) Ao Diam 3.89 cm (2.0-3.7) LVDs 3.24 cm (3.5-5.7) IVSd 1.26 cm (0.6-1.1) PWd 0.76 cm (0.6-1.1) EF (Teich) 48.10% FS 23.90% EDV (Teich) 81.30 mL TAPSE 0.91 (<1.7) ESV (Teich) 42.20 mL LV Diastology E Decel Time 167 (160-240 msec) E/A Ratio 1.13 MED E' 7.7 (>= 7 cm/sec) MED A' 13.00 cm/s E'/MED E' Ratio 11.10 (<= 14) LAT E' 8.1 (>= 10 cm/sec) LAT A' 10.70 cm/s E/LAT E' Ratio 10.56 (<= 14) Aortic Valve LVOT Max 127.0 (70-110 cm/s) HOLLAND Index 1.19 cm2/m2 LVOT VTI 25.33 cm AoV Peak Brian. 152.0 (50-130 cm/s) AO Peak GR. 9.20 mmHg AO Mean GR. 5.20 (<5 mmHg) AO VTI 29.1 (18-25 cm) HOLLAND (VTI) 2.46 (2.5-4.5 cm2) Mitral Valve MV E Max Brian. 86.0 (40-130 cm/s) MV A Velocity 76.0 (40-130 cm/s) E/A Ratio 1.13 MV Decel. Time 167 (160-240 ms) Tricuspid Valve TR P. Velocity 253.00 cm/s RAP Estimate 10.00 mmHg RVSP 35.60 mmHg Left Ventricle The left ventricle is normal size. The left ventricular systolic function is normal. The left ventricular ejection fraction is within the normal range. There is increased LV wall thickness. Proximal septal thickening is noted. There is normal LV segmental wall motion. The left ventricular diastolic function is normal. LVEF is 55%. Right Ventricle The right ventricle is moderately dilated. Right ventricle is moderately hypokinetic. Atria The left atrium size is normal. The right atrium size is normal. There is no Doppler evidence of interatrial shunt. Aortic Valve S/p AVR. The prosthesis is well-seated. Peak velocity 1.7 m/s. Mean AV gradient 7 mmHg. Max AV gradient 12 mmHg. Acceleration time 69 ms. Trace aortic regurgitation. Mitral Valve Mild mitral annular calcification. The mitral valve leaflets are mildly thickened. No evidence of mitral valve stenosis. Mild mitral regurgitation. Tricuspid Valve The tricuspid valve leaflets are thin and pliable. Mild tricuspid regurgitation. RVSP is 20-25 mmHg. Pulmonic Valve The pulmonary valve is not well-visualized. Great Vessels The aortic root is normal in size. The ascending aorta is normal in size. IVC is normal in size and collapses >50% with inspiration. Pericardium There is no pericardial effusion. Other Information Study Quality: Technically Difficult Conclusion Technically difficult study due to poor acoustic windows. Normal LV systolic function. Moderate RV dilation with moderate RV dysfunction. Mild MR. Mild TR. s/p AVR. Acceptable AV parameters. Electronically signed by : Promise Enriquez MD 04/16/2023 11:00:18
== END 2023-04-14 23:59 ==
PROVIDERS: PCP Family Medicine; Visit Provider Physician Assistant
DX: Z45.018 Encounter for adjustment and management of other part of cardiac pacemaker (principal); Z95.1 Presence of aortocoronary bypass graft; Z95.2 Presence of prosthetic heart valve
CPT/HCPCS: 93306

== ENCOUNTER 2023-04-28 15:42 | Emergency (ER) | payer MEDICARE, SELFPAY ==
[2023-04-28 16:00] VITALS: BP 134/79; PULSE 82; RESP 18; TEMP 36.6; O2SAT 95; BMI 38.0
--- NOTE | 2023-04-28 16:00 | EXP.UTC ---
Discharge Plan Disposition Patient Disposition: Home, Self-Care Condition: Good Prescriptions Prescriptions: New furosemide [Lasix] 40 mg tablet 40 mg PO DAILY 3 Days Qty: 3 0RF No Action atorvastatin 40 mg tablet 40 mg PO DAILY Qty: 90 3RF metoprolol succinate 50 mg tablet extended release 24 hr 50 mg PO DAILY Qty: 90 3RF aspirin 81 mg Tablet,Delayed Release (Dr/Ec) 81 mg PO DAILY lisinopril-hydrochlorothiazide 10-12.5 mg tablet 1 tab PO DAILY Referrals Follow up/Referrals: Norma Watson MD [Primary Care Provider] - See instructions Activity Restrictions/Add. Instructions Additional Instructions/Restrictions: Take the medications as directed. Follow up with your regular doctor. Call Dr. Corcoran's office in the morning and follow their instructions from there. GO TO THE ER FOR ANY WORSENING SYMPTOMS Clinical Impressions Clinical Impression: Pedal edema Instructions Patient Instructions: Furosemide, Edema Discharge ED Provider: Alejo Castrejon [facility] General Stated complaint: congestion, cough Time Seen by Provider: 04/28/23 16:00 History of Present Illness Provider Complaint: He states that for the past few days he has had worsening pedal edema. He has also had mild dyspnea when he walks more than a short distance. He denies any chest pain. He denies orthopnea. Related Data Home Medications Medication Instructions Recorded Confirmed aspirin 81 mg tablet,delayed 81 mg PO DAILY antiplatelet 12/17/21 04/28/23 release lisinopril 10 1 tab PO DAILY 04/28/23 04/28/23 mg-hydrochlorothiazide 12.5 mg tablet Previous Rx's Medication Instructions Recorded atorvastatin 40 mg tablet 40 mg PO DAILY #90 tabs 04/06/23 metoprolol succinate 50 mg 50 mg PO DAILY #90 tabs 04/06/23 tablet,extended release 24 hr furosemide 40 mg tablet (Lasix) 40 mg PO DAILY 3 days #3 tabs 04/28/23 Allergies Allergy/AdvReac Type Severity Reaction Status Date / Time No Known Allergies Allergy Verified 04/28/23 16:14 [facility] Disclaimer: The information contained in this section may have been updated after the patient was seen, as this information can be updated by other users. Medical History Abnormal electrocardiography Ex-smoker Heart murmur, systolic Near syncope Second degree AV block Symptomatic bradycardia Surgical History S/P CABG x 2 Family History Other Family history of diabetes mellitus type II Heart attack Social History Smoking Status: Never smoker alcohol intake: never substance use type: denies use current occupational status: employed Travel in the last 8 weeks: Inside the [place] household members: none housing: house current occupational exposures/hazards: No caffeine: Yes ROS Obtained: Yes All systems reviewed & no additional complaints except as documented Constitutional Constitutional: Denies chills and Denies fever(s) Eyes Eyes: Denies eye discharge ENT Ears, Nose, Mouth, and Throat: Denies dizziness, Denies otalgia and Denies sore throat Cardiovascular Cardiovascular: Denies chest pain, Denies dyspnea, Denies dyspnea on exertion and Reports edema Respiratory Respiratory: Denies shortness of breath, Denies chest congestion, Denies cough, Denies dyspnea, Denies dyspnea on exertion, Denies stridor and Denies wheezing Gastrointestinal Gastrointestingal: Denies nausea or vomiting Musculoskeletal Musculoskeletal: Reports system reviewed and no additional complaints, except as documented and Denies arthralgias Integumentary/Breasts Skin/Breast: Denies rash Neurologic Neurologic: Denies dizziness and Denies paresthesias Allergic/Immunologic Allergic/Immunologic: Denies wheezing Physical Exam General General appearance: alert and in no apparent distress Head Head exam: atraumatic, normocephalic and normal inspection Eye Eye exam: Present normal appearance, PERRL and EOMI ENT ENT exam: Present normal exam, normal oropharynx, mucous membranes moist, TM's normal bilaterally and normal external ear exam Neck Neck exam: Present normal inspection, full ROM and trachea midline; Absent meningismus or lymphadenopathy Chest Chest inspection: Present normal inspection and symmetric chest wall rise; Absent tenderness Respiratory Respiratory exam: Present normal lung sounds bilaterally; Absent respiratory distress Cardiovascular Cardiovascular exam: Present regular rate and normal rhythm; Absent JVD Expanded Cardiovascular Exam Peripheral pulses: 2+: posterior tibialis (R), posterior tibialis (L), dorsalis pedis (R) and dorsalis pedis (L) Abdominal Exam Abdominal exam: Present soft and normal bowel sounds; Absent distention, tenderness or guarding Extremities Exam Extremities exam: Present normal inspection, full ROM and normal capillary refill; Absent calf tenderness Back Exam Back exam: Present normal inspection; Absent tenderness Neurological Exam Neurological exam: Present alert and oriented X3 Psychiatric Psychiatric exam: Present normal affect and normal mood Skin Skin exam: Present warm, dry, intact and normal color Lymphatic Lymphatic Findings: no adenopathy Medical Decision Making Medical Records Medical records reviewed: No I reviewed the patient's medical records. Yaya Inquiry Pt receiving controlled substance: No
[2023-04-28 16:22] LABS: UTC Strep Screen (Rapid) Negative (Negative)
[2023-04-28 16:23] LABS: UTC Influenza A Antigen Negative (Negative); UTC Influenza B Antigen Negative (Negative)
--- NOTE | 2023-04-28 16:35 | XR_ITS ---
PROCEDURE INFORMATION: Exam: XR Chest Exam date and time: 04/28/2023 4:37 PM Age: 78 years old Clinical indication: Wheezing; Additional info: Cough, congestion TECHNIQUE: Imaging protocol: Radiologic exam of the chest. Views: 2 views. COMPARISON: CR XR CHEST PORTABLE 12/17/2021 2:45 PM FINDINGS: Tubes, catheters and devices: There is a left chest implanted cardiac device. Lungs: See Pleural spaces finding. Pleural spaces: There are small bilateral pleural effusions and mild diffuse pulmonary edema. Heart/Mediastinum: No evidence of mediastinal widening or cardiac silhouette enlargement; the mediastinum and heart appear within normal limits for contour and size. Vasculature: There are calcifications of the aortic arch. Bones/joints: No evidence of acute osseous abnormalities within the visualized portions of the thoracic spine and ribs. Osseous structures appear appropriate for patient age. The patient is status post median sternotomy. IMPRESSION: There are small bilateral pleural effusions and mild diffuse pulmonary edema.
[2023-04-28 17:31] VITALS: BP 134/79; PULSE 82; RESP 18; TEMP 36.6; O2SAT 95
== END 2023-04-28 17:31 | disposition home or self-care (01) ==
PROVIDERS: Emergency Provider Nurse Practitioner Family; PCP Family Medicine
DX: R60.0 Localized edema (principal); R06.02 Shortness of breath; Z87.891 Personal history of nicotine dependence
CPT/HCPCS: 71046; 87804; 87880; 99212; 99214; G0463

== ENCOUNTER 2023-05-04 15:37 | Outpatient (CLI) | payer MEDICARE, SELFPAY ==
[2023-05-04 15:58] LABS: Basophils % 0.2 % (0.1-2.0); Eosinophils % 14.1 % (0.1-12.0); Hematocrit 48.8 % (42.0-52.0); Hemoglobin 16.2 g/dL (14.1-18.0); Lymphocytes # 1.2 K/mm3 (0.7-4.5); Lymphocytes % 17.2 % (10-50); Mean Corpuscular HGB Conc 33.3 g/dL (31.8-35.4); Mean Corpuscular Hemoglobin 33.6 pg (27.0-31.2); Mean Corpuscular Volume 101.2 fl (80-94); Mean Platelet Volume 8.8 fl (7.4-10.4); Monocytes # 0.7 K/mm3 (0.1-1.0); Neutrophils # 4.1 K/mm3 (1.8-7.8); Neutrophils % 58.6 % (37.0-80.0); Platelet Count 93 K/mm3 (142-424); Red Blood Count 4.83 M/mm3 (4.60-6.20); Red Cell Distribution Width 14.2 % (11.5-17.5); White Blood Count 7.1 K/mm3 (4.8-10.8)
[2023-05-04 16:36] LABS: Alanine Aminotransferase 52 U/L (12-78); Albumin Level 3.7 g/dl (3.5-5.0); Alkaline Phosphatase 105 U/L (38-126); Aspartate Amino Transferase 65 U/L (17-59); Bilirubin,Direct 0.3 mg/dl (0.0-0.4); Bilirubin,Total 1.3 mg/dl (0.2-1.3); Blood Urea Nitrogen 15 mg/dl (9-20); Calcium 9.1 mg/dl (8.4-10.2); Carbon Dioxide 29 mmol/L (22.0-30.0); Chloride 104 mmol/L (98-107); Chol/HDL Ratio 3.5 (1-3.5); Cholesterol 152 mg/dl (140-200); Estimated Glomerular Filt Rate 72 ml/min (>60); GFR (African American) 88 ML/MIN (>60); Glucose 99 mg/dl (74-100); HDL Cholesterol 43 mg/dl (40-60); Magnesium 2.2 mg/dl (1.6-2.3); Sodium 140 mmol/L (136-145); Total Protein,Serum 7.1 g/dl (6.3-8.2); Triglycerides 80 mg/dl (30-150); VLDL Cholesterol 16 mg/dL (0-40)
[2023-05-04 16:45] LABS: NT Pro Brain Natriuretic Pep. 1120 pg/mL (0-450)
[2023-05-04 16:47] LABS: Direct LDL Cholesterol 74.15 mg/dL (100-129)
[2023-05-04 17:07] LABS: Thyroid Stimulating Hormone 1.74 uIU/mL (0.465-4.68)
== END 2023-05-04 23:59 ==
LOC: LAB 15:38
PROVIDERS: PCP Family Medicine; Visit Provider Internal Medicine
DX: I25.10 Atherosclerotic heart disease of native coronary artery without angina pectoris (principal); I35.0 Nonrheumatic aortic (valve) stenosis; I35.1 Nonrheumatic aortic (valve) insufficiency; R60.0 Localized edema; R94.31 Abnormal electrocardiogram [ECG] [EKG]; D64.9 Anemia, unspecified; E78.5 Hyperlipidemia, unspecified; R06.00 Dyspnea, unspecified; R79.89 Other specified abnormal findings of blood chemistry; Z95.0 Presence of cardiac pacemaker; Z95.1 Presence of aortocoronary bypass graft; Z95.2 Presence of prosthetic heart valve
CPT/HCPCS: 36415; 80048; 80061; 80076; 83735; 83880; 84439; 84443; 85025

== ENCOUNTER 2023-05-18 08:48 | Outpatient (CLI) | payer MEDICARE, SELFPAY ==
[2023-05-18 11:27] LABS: Anion Gap 8.9 mEq/L (5-15); Blood Urea Nitrogen 26 mg/dl (9-20); Carbon Dioxide 29 mmol/L (22.0-30.0); Chloride 106 mmol/L (98-107); Estimated Glomerular Filt Rate 59 ml/min (>60); GFR (African American) 71 ML/MIN (>60); Glucose 93 mg/dl (74-100); Potassium 3.9 mmoL/L (3.5-5.1); Sodium 140 mmol/L (136-145)
[2023-05-18 11:34] LABS: NT Pro Brain Natriuretic Pep. 1020 pg/mL (0-450)
== END 2023-05-18 23:59 ==
LOC: LAB 08:50
PROVIDERS: PCP Family Medicine; Visit Provider Physician Assistant
DX: R06.00 Dyspnea, unspecified; I44.1 Atrioventricular block, second degree; I25.118 Atherosclerotic heart disease of native coronary artery with other forms of angina pectoris; R60.0 Localized edema; E78.5 Hyperlipidemia, unspecified; Z95.1 Presence of aortocoronary bypass graft; Z95.2 Presence of prosthetic heart valve; Z45.018 Encounter for adjustment and management of other part of cardiac pacemaker
CPT/HCPCS: 36415; 80048; 83880

== ENCOUNTER 2023-10-12 06:04 | Emergency (ER) | payer MEDICARE, SELFPAY ==
[2023-10-12] VITALS (8 sets, daily range): BP systolic 103–134; BP diastolic 57–70; PULSE 94–113; RESP 17–18; TEMP 36.4–36.5; O2SAT 92–100; BMI 33.9; BMI 40.3
--- NOTE | 2023-10-12 06:04 | ECG_ITS ---
APPROVED REPORT Exam: Resting ECG HR:99 bpm ECG Measurements Heart Rate 99 AXES WI 146 P 59 QRSd 121 QRS 83 QT 375 T -73 QTc 431 Conclusion SINUS RHYTHM POSSIBLE LEFT ATRIAL ENLARGEMENT [-0.1mV P-WAVE IN V1/V2] RIGHT BUNDLE BRANCH BLOCK [120+ ms QRS DURATION, UPRIGHT V1, 40+ ms S IN I/aVL/V4/V5/V6] MODERATE T-WAVE ABNORMALITY, CONSIDER LATERAL ISCHEMIA [-0.1+ mV T-WAVE IN I/aVL/V5/V6] MODERATE T-WAVE ABNORMALITY, CONSIDER INFERIOR ISCHEMIA [-0.1+ mV T-WAVE IN II/aVF] ABNORMAL ECG Electronically signed by : JENNY SOLORIO, 10/12/2023 16:58:14
--- NOTE | 2023-10-12 06:17 | XR_ITS ---
FINAL REPORT CLINICAL HISTORY: cough, shortness of breath COMPARISON: 04/28/2023 FINDINGS: Status post CABG. There is moderate left pleural effusion. There has been resolution of the right pleural effusion compared to the prior study. Left lower lobe atelectasis is noted. There is no pulmonary edema. The cardiac silhouette is unremarkable. IMPRESSION: Moderate left pleural effusion and left lower lobe atelectasis. Reviewed, Interpreted and Dictated by Josiah Bonds MD Transcribed by June Perez Authenticated and [facility]
--- NOTE | 2023-10-12 06:17 | HMH.EDGENADL ---
Discharge Plan Disposition Patient Disposition: Home, Self-Care Condition: Good Prescriptions Prescriptions: New furosemide [Lasix] 40 mg tablet 40 mg PO DAILY Qty: 7 0RF No Action furosemide 40 mg tablet 40 mg PO DAILY atorvastatin 40 mg tablet 40 mg PO HS metoprolol succinate 25 mg tablet extended release 24 hr 25 mg PO HS aspirin 81 mg Tablet 81 mg PO DAILY Referrals Follow up/Referrals: Tavares Zayas MD [Primary Care Provider] - See instructions Activity Restrictions/Add. Instructions Additional Instructions/Restrictions: You were evaluated in the emergency department today. Please follow-up with your program or project administrator over the next 24 to 48 hours for reassessment. I also recommend close follow-up with your primary care doctor. Return to the emergency department for any new or worsening symptoms. 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 Clinical Impressions Clinical Impression: Acute exacerbation of CHF (congestive heart failure), Pleural effusion Instructions Patient Instructions: DI for Heart Failure, DI for Pleural Effusion Discharge ED Provider: Sylvia Kirk General Adult HPI <Michael Matthew MD - Last Filed: 10/12/23 07:15> General Chief complaint: Shortness of Breath/Dyspnea Stated complaint: SOA, Dyspnea Time Seen by Provider: 10/12/23 06:17 Mode of Arrival: EMS Source of Information: Patient and EMS Limitations: No Limitations Description of Symptoms (Recalled from ER Triage Doc. by RN): Pt presents to ED via EMS for SOB. Pt states this has been happening the past few days and he's been able to walk it off however, today he wasn't able to. EMS states upon arrival O2 was 92% on room air. EMS gave a neb treatment and 2L O2 and he was at 99%. Pt has no pain at this time and states he is feeling better. Pt is not on oxygen currently. Pt is A&O*4. History of Present Illness HPI narrative: 78-year-old male with history of coronary artery disease, status post CABG, aortic valve replacement, pacemaker, presents for shortness of breath. He reports has been present for the last 3 to 4 days. He denies any fever or chills. Reports that he has had cough active of clear phlegm, denies any chest pain. Reports that his leg swelling is somewhat more than normal. Denies any history of lung problems. He was 92% on room air on EMS, they gave 1 albuterol nebulizer. Related Data Home Medications Medication Instructions Recorded Confirmed aspirin 81 mg tablet 81 mg PO DAILY 10/12/23 10/12/23 atorvastatin 40 mg tablet 40 mg PO HS 10/12/23 10/12/23 furosemide 40 mg tablet 40 mg PO DAILY 10/12/23 10/12/23 metoprolol succinate 25 mg 25 mg PO HS 10/12/23 10/12/23 tablet,extended release 24 hr Previous Rx's Medication Instructions Recorded furosemide 40 mg tablet (Lasix) 40 mg PO DAILY #7 tabs 10/12/23 Allergies Allergy/AdvReac Type Severity Reaction Status Date / Time No Known Allergies Allergy Verified 10/01/23 08:57 PFS <Michael Matthew MD - Last Filed: 10/12/23 07:15> [facility] Disclaimer: The information contained in this section may have been updated after the patient was seen, as this information can be updated by other users. Medical History (Updated 10/12/23 @ 09:16 by Sylvia Kirk DO) Hypotension Dizziness Coronary artery disease Pacemaker Hypertension HLD (hyperlipidemia) Ex-smoker Near syncope Symptomatic bradycardia Second degree AV block Abnormal electrocardiography Heart murmur, systolic Surgical History S/P CABG (coronary artery bypass graft) S/P AVR (aortic valve replacement) S/P CABG x 2 Family History Other Family history of diabetes mellitus type II Heart attack Social History Smoking Status: Unknown if ever smoked alcohol intake: never substance use type: denies use current occupational status: employed Travel in the last 8 weeks: Inside the [place] household members: none housing: house current occupational exposures/hazards: No caffeine: Yes <Michael Matthew MD - Last Filed: 10/12/23 07:15> ROS Obtained: Yes All systems reviewed & no additional complaints except as documented Physical Exam <Michael Matthew MD - Last Filed: 10/12/23 07:15> General General appearance: alert and in no apparent distress Head Head exam: atraumatic and normocephalic Eye Eye exam: Present normal appearance, PERRL and EOMI ENT ENT exam: Present normal oropharynx and normal external ear exam Neck Neck exam: Present normal inspection and full ROM Chest Chest inspection: Present normal inspection and symmetric chest wall rise; Absent tenderness Respiratory Respiratory exam: Present wheezes (Faint end expiratory wheezes diffusely); Absent respiratory distress Cardiovascular Cardiovascular exam: Present regular rate and normal rhythm Abdominal Exam Abdominal exam: Present soft; Absent distention, tenderness or guarding Extremities Exam Extremities exam: Present normal inspection and edema (Tense bilateral lower extremity pitting edema); Absent joint swelling Back Exam Back exam: Present normal inspection; Absent tenderness Neurological Exam Neurological exam: Present alert and oriented X3; Absent motor sensory deficit Psychiatric Psychiatric exam: Present normal affect and normal mood Skin Skin exam: Present warm, dry and normal color Lymphatic Lymphatic Findings: no adenopathy Medical Decision Making <Michael Matthew MD - Last Filed: 10/12/23 07:15> Medical Records Medical records reviewed: Yes I reviewed the patient's medical records. Yaya Inquiry Pt receiving controlled substance: No Yaya was queried for this patient: No Vital Signs: 10/12/23 06:04 10/12/23 06:30 10/12/23 07:00 Temperature 97.5 F L Temperature Source Oral Pulse Rate 99 H 101 H Pulse Rate [Left] 94 H Respiratory Rate 18 18 Blood Pressure 109/57 L 106/59 L Blood Pressure [Right Arm] 134/66 Blood Pressure Mean 67 Blood Pressure Mean [Right Arm] 88 Blood Pressure Source Blood Pressure Position 02 Sat by Pulse Oximetry 95 100 98 Oxygen Delivery Method Room Air 10/12/23 07:30 10/12/23 08:00 10/12/23 08:30 Temperature Temperature Source Pulse Rate 113 H 107 H 105 H Pulse Rate [Left] Respiratory Rate 17 Blood Pressure 109/68 L 109/57 L 103/67 L Blood Pressure [Right Arm] Blood Pressure Mean 78 73 80 Blood Pressure Mean [Right Arm] Blood Pressure Source Blood Pressure Position 02 Sat by Pulse Oximetry 92 L 94 L 94 L Oxygen Delivery Method Room Air 10/12/23 09:00 10/12/23 09:20 Temperature 97.7 F Temperature Source Oral Pulse Rate 104 H 109 H Pulse Rate [Left] Respiratory Rate 18 Blood Pressure 122/70 122/70 Blood Pressure [Right Arm] Blood Pressure Mean 83 Blood Pressure Mean [Right Arm] Blood Pressure Source Automatic Cuff Blood Pressure Position Sitting 02 Sat by Pulse Oximetry 94 L Oxygen Delivery Method Room Air Lab Data Lab results reviewed: Yes I reviewed the patient's lab results. Lab Results 10/12/23 06:05: WBC 7.3, RBC 4.22 L, Hgb 14.3, Hct 43.4, MCV 102.8 H, MCH 33.9 H, MCHC 33.0, RDW 15.3, Plt Count 90 L, MPV 8.5, Neut % (Auto) 48.6, Lymph % (Auto) 29.1, [place] % (Auto) 8.3, Eos % (Auto) 13.1 H, Baso % (Auto) 0.9, Neut # (Auto) 3.6, Lymph # (Auto) 2.1, [place] # (Auto) 0.6, Eos # (Auto) 1.0 H, Baso # (Auto) 0.1, Sodium 137, Potassium 4.5, Chloride 109 H, Carbon Dioxide 26, Anion Gap 6.5, BUN 21 H, Creatinine 1.20, Estimated Creat Clear 69, Estimated GFR 59, Est GFR ( Amer) 71, Glucose 102 H, Calcium 8.8, Total Bilirubin 1.2, AST 84 H, ALT 67, Alkaline Phosphatase 183 H, NT-Pro-B Natriuret Pep 1340 H, Total Protein 7.3, Albumin 3.6, Globulin 3.7 H, Albumin/Globulin Ratio 1.0 L 10/12/23 06:05 10/12/23 06:05 Orders (Tests/Meds): ED MEDICATIONS Discontinued Medications Generic Name Dose Route Start Last Admin Trade Name Chelsi PRN Reason Stop Dose Admin Albuterol/Ipratropium 3 ml 10/12/23 06:17 10/12/23 06:25 Ipratropium/Albuterol 3 Ml Neb IH 10/12/23 06:18 3 ml ONCE ONE Administration Furosemide 40 mg 10/12/23 06:19 10/12/23 06:25 Furosemide 40mg/4ml Vial IV 10/12/23 06:20 40 mg ONCE ONE Administration ORDERS Category Date Time Status CXR 2 view (NOT portable) [XR chest 2V] Stat Exams 10/12/23 06:17 Completed BNP [NT Pro Brain Natriuretic Pep.] Stat Lab 10/12/23 06:05 Completed CBC w/Auto Diff [Complete Blood Count Auto Diff] Stat Lab 10/12/23 06:05 Completed CMP [Comprehensive Metabolic Panel] Stat Lab 10/12/23 06:05 Completed Medical Decision Narrative: 78-year-old male with history of CABG, no reported lung history, presents with few days of worsening shortness of breath and cough productive of clear phlegm. History was obtained via interactive discussion with patient, chart review. On arrival, patient is [afebrile, hemodynamically stable, satting 89-91 on room air, alert, oriented x4, GCS 15], moving all extremities spontaneously. Full physical exam performed and significant for faint wheezing diffusely, tense bilateral lower extremity pitting edema Differential includes but is not limited to pneumonia, URI, heart failure, airway inflammation,. Patient was given 1 DuoNeb, 40 mg IV Lasix for symptomatic management and correction of underlying abnormalities. Workup initiated including CBC CMP BNP chest x-ray EKG. On re-evaluation, patient [remains afebrile, HD stable.] Reports some improvement after the DuoNeb. Laboratory workup independently interpreted by me and significant for mildly elevated BNP, no leukocytosis, no significant electrolyte derangement. Patient handed off to oncoming physician pending reassessment, chest x-ray. <Sylvia Kirk, DO - Last Filed: 10/12/23 14:49> Vital Signs: 10/12/23 06:04 10/12/23 06:30 10/12/23 07:00 Temperature 97.5 F L Temperature Source Oral Pulse Rate 99 H 101 H Pulse Rate [Left] 94 H Respiratory Rate 18 18 Blood Pressure 109/57 L 106/59 L Blood Pressure [Right Arm] 134/66 Blood Pressure Mean 67 Blood Pressure Mean [Right Arm] 88 Blood Pressure Source Blood Pressure Position 02 Sat by Pulse Oximetry 95 100 98 Oxygen Delivery Method Room Air 10/12/23 07:30 10/12/23 08:00 10/12/23 08:30 Temperature Temperature Source Pulse Rate 113 H 107 H 105 H Pulse Rate [Left] Respiratory Rate 17 Blood Pressure 109/68 L 109/57 L 103/67 L Blood Pressure [Right Arm] Blood Pressure Mean 78 73 80 Blood Pressure Mean [Right Arm] Blood Pressure Source Blood Pressure Position 02 Sat by Pulse Oximetry 92 L 94 L 94 L Oxygen Delivery Method Room Air 10/12/23 09:00 10/12/23 09:20 Temperature 97.7 F Temperature Source Oral Pulse Rate 104 H 109 H Pulse Rate [Left] Respiratory Rate 18 Blood Pressure 122/70 122/70 Blood Pressure [Right Arm] Blood Pressure Mean 83 Blood Pressure Mean [Right Arm] Blood Pressure Source Automatic Cuff Blood Pressure Position Sitting 02 Sat by Pulse Oximetry 94 L Oxygen Delivery Method Room Air Lab Data Lab Results 10/12/23 06:05: WBC 7.3, RBC 4.22 L, Hgb 14.3, Hct 43.4, MCV 102.8 H, MCH 33.9 H, MCHC 33.0, RDW 15.3, Plt Count 90 L, MPV 8.5, Neut % (Auto) 48.6, Lymph % (Auto) 29.1, [place] % (Auto) 8.3, Eos % (Auto) 13.1 H, Baso % (Auto) 0.9, Neut # (Auto) 3.6, Lymph # (Auto) 2.1, [place] # (Auto) 0.6, Eos # (Auto) 1.0 H, Baso # (Auto) 0.1, Sodium 137, Potassium 4.5, Chloride 109 H, Carbon Dioxide 26, Anion Gap 6.5, BUN 21 H, Creatinine 1.20, Estimated Creat Clear 69, Estimated GFR 59, Est GFR ( Amer) 71, Glucose 102 H, Calcium 8.8, Total Bilirubin 1.2, AST 84 H, ALT 67, Alkaline Phosphatase 183 H, NT-Pro-B Natriuret Pep 1340 H, Total Protein 7.3, Albumin 3.6, Globulin 3.7 H, Albumin/Globulin Ratio 1.0 L Orders (Tests/Meds): ED MEDICATIONS Discontinued Medications Generic Name Dose Route Start Last Admin Trade Name Freq PRN Reason Stop Dose Admin Albuterol/Ipratropium 3 ml 10/12/23 06:17 10/12/23 06:25 Ipratropium/Albuterol 3 Ml Neb IH 10/12/23 06:18 3 ml ONCE ONE Administration Furosemide 40 mg 10/12/23 06:19 10/12/23 06:25 Furosemide 40mg/4ml Vial IV 10/12/23 06:20 40 mg ONCE ONE Administration ORDERS Category Date Time Status CXR 2 view (NOT portable) [XR chest 2V] Stat Exams 10/12/23 06:17 Completed BNP [NT Pro Brain Natriuretic Pep.] Stat Lab 10/12/23 06:05 Completed CBC w/Auto Diff [Complete Blood Count Auto Diff] Stat Lab 10/12/23 06:05 Completed CMP [Comprehensive Metabolic Panel] Stat Lab 10/12/23 06:05 Completed ECG Data Tracing #1: I reviewed this ECG and interpreted as documented below: Normal sinus rhythm with a ventricular rate of 99 bpm. Right bundle branch block noted. Nonspecific ST/T wave abnormality without acute STEMI. ECG initial impression date: 10/12/23 ECG initial impression time: 06:05 Medical Decision Narrative: 78-year-old male with history of CABG, no reported lung history, presents with few days of worsening shortness of breath and cough productive of clear phlegm. History was obtained via interactive discussion with patient, chart review. On arrival, patient is [afebrile, hemodynamically stable, satting 89-91 on room air, alert, oriented x4, GCS 15], moving all extremities spontaneously. Full physical exam performed and significant for faint wheezing diffusely, tense bilateral lower extremity pitting edema Differential includes but is not limited to pneumonia, URI, heart failure, airway inflammation,. Patient was given 1 DuoNeb, 40 mg IV Lasix for symptomatic management and correction of underlying abnormalities. Workup initiated including CBC CMP BNP chest x-ray EKG. On re-evaluation, patient [remains afebrile, HD stable.] Reports some improvement after the DuoNeb. Laboratory workup independently interpreted by me and significant for mildly elevated BNP, no leukocytosis, no significant electrolyte derangement. Patient handed off to oncoming physician pending reassessment, chest x-ray. DO Reagan: I assumed care of the patient at 0700. He is resting comfortably on room air with no increased work of breathing. He had good urine output after administration of Lasix. Patient found to have left pleural effusion as well as fluid buildup in his lungs. He states that he has been told this in the past. I advised him that if his symptoms are severe, we could admit him for diuresis and further evaluation and management, but he wants to go home. He states he will follow-up very closely with his program or project administrator and come back if things get worse. Given this, we will discharge the patient. He was given prescription for Lasix to take for 7 days to see if we can get some of this fluid off and he was given very strict return precautions should his symptoms worsen. I advised that he follow-up with primary care and cardiology over the next 48 to 72 hours. Strict return precautions were given, and he was discharged after all questions were answered. Procedures <Michael Matthew MD - Last Filed: 10/12/23 07:15> Risk/Benefits of Procedure(s) Were Explained: Yes Critical Care <Michael Matthew MD - Last Filed: 10/12/23 07:15> Critical Care Time Critical Care Time: No
[2023-10-12] MEDS: FUROSEMIDE 40MG/4ML VIAL 40 MG IV (06:25)
[2023-10-12] MEDS: IPRATROPIUM/ALBUTEROL 3 ML NEB IH (06:25)
[2023-10-12 06:27] LABS: Basophils # 0.1 K/mm3 (0-0.2); Basophils % 0.9 % (0.1-2.0); Chloride 109 mmol/L (98-107); Eosinophils % 13.1 % (0.1-12.0); Hematocrit 43.4 % (42.0-52.0); Hemoglobin 14.3 g/dL (14.1-18.0); Lymphocytes # 2.1 K/mm3 (0.7-4.5); Lymphocytes % 29.1 % (10-50); Mean Corpuscular Hemoglobin 33.9 pg (27.0-31.2); Mean Corpuscular Volume 102.8 fl (80-94); Mean Platelet Volume 8.5 fl (7.4-10.4); Monocytes # 0.6 K/mm3 (0.1-1.0); Monocytes % 8.3 % (1.7-9.3); Neutrophils # 3.6 K/mm3 (1.8-7.8); Neutrophils % 48.6 % (37.0-80.0); Platelet Count 90 K/mm3 (142-424); Red Blood Count 4.22 M/mm3 (4.60-6.20); Red Cell Distribution Width 15.3 % (11.5-17.5); Sodium 137 mmol/L (136-145); White Blood Count 7.3 K/mm3 (4.8-10.8)
[2023-10-12 06:28] LABS: Potassium 4.5 mmoL/L (3.5-5.1)
[2023-10-12 06:30] LABS: Alanine Aminotransferase 67 U/L (12-78); Albumin Level 3.6 g/dl (3.5-5.0); Alkaline Phosphatase 183 U/L (38-126); Anion Gap 6.5 mEq/L (5-15); Aspartate Amino Transferase 84 U/L (17-59); Bilirubin,Total 1.2 mg/dl (0.2-1.3); Blood Urea Nitrogen 21 mg/dl (9-20); Carbon Dioxide 26 mmol/L (22.0-30.0); Creatinine Clearance Estimated 69 mL/min (50-200); Estimated Glomerular Filt Rate 59 ml/min (>60); GFR (African American) 71 ML/MIN (>60); Globulin 3.7 g/dL (1.3-3.2); Total Protein,Serum 7.3 g/dl (6.3-8.2)
[2023-10-12 06:31] LABS: Calcium 8.8 mg/dl (8.4-10.2); Glucose 102 mg/dl (74-100)
[2023-10-12 06:40] LABS: NT Pro Brain Natriuretic Pep. 1340 pg/mL (0-450)
--- NOTE | 2023-10-12 06:41 | PC.NURSE ---
Patient to rad via wheelchair
--- NOTE | 2023-10-12 07:25 | PC.NURSE ---
ROUNDED ON PT, UPDATED ON POC. NO NEEDS AT THIS TIME. CALL LIGHT WITHIN REACH. FAMILY AT BEDSIDE
== END 2023-10-12 09:20 | disposition home or self-care (01) ==
PROVIDERS: Emergency Medicine; Emergency Provider Emergency Medicine; PCP Family Medicine
DX: R06.02 Shortness of breath (principal); J90 Pleural effusion, not elsewhere classified; I11.0 Hypertensive heart disease with heart failure; I50.9 Heart failure, unspecified; E78.5 Hyperlipidemia, unspecified; Z86.79 Personal history of other diseases of the circulatory system; Z95.1 Presence of aortocoronary bypass graft
CPT/HCPCS: 71046; 80053; 83880; 85025; 93005; 96374; 99284; J1940; J7620

== ENCOUNTER 2023-10-30 10:11 | Outpatient (CLI) | payer MEDICARE, SELFPAY ==
[2023-10-30 11:14] LABS: Chloride 105 mmol/L (98-107); Potassium 4.6 mmoL/L (3.5-5.1); Sodium 138 mmol/L (136-145)
[2023-10-30 11:17] LABS: Anion Gap 7.6 mEq/L (5-15); Blood Urea Nitrogen 35 mg/dl (9-20); Calcium 8.9 mg/dl (8.4-10.2); Carbon Dioxide 30 mmol/L (22.0-30.0); Estimated Glomerular Filt Rate 54 ml/min (>60); GFR (African American) 65 ML/MIN (>60); Glucose 87 mg/dl (74-100); Magnesium 2.1 mg/dl (1.6-2.3)
== END 2023-10-30 23:59 | disposition home or self-care (01) ==
LOC: LAB 10:14
PROVIDERS: PCP Family Medicine; Visit Provider Nurse Practitioner Family
DX: E78.2 Mixed hyperlipidemia (principal); I11.9 Hypertensive heart disease without heart failure; I25.118 Atherosclerotic heart disease of native coronary artery with other forms of angina pectoris; I35.0 Nonrheumatic aortic (valve) stenosis; I35.1 Nonrheumatic aortic (valve) insufficiency; Z95.1 Presence of aortocoronary bypass graft; Z95.0 Presence of cardiac pacemaker; Z95.2 Presence of prosthetic heart valve
CPT/HCPCS: 36415; 80048; 83735

== ENCOUNTER 2024-02-29 09:27 | Outpatient (CLI) | payer MEDICARE, SELFPAY ==
[2024-02-29 10:09] LABS: Basophils # 0.1 K/mm3 (0-0.2); Basophils % 0.9 % (0.1-2.0); Eosinophils % 14.1 % (0.1-12.0); Hematocrit 48.2 % (42.0-52.0); Hemoglobin 16.2 g/dL (14.1-18.0); Lymphocytes # 1.6 K/mm3 (0.7-4.5); Mean Corpuscular HGB Conc 33.7 g/dL (31.8-35.4); Mean Corpuscular Volume 97.9 fl (80-94); Mean Platelet Volume 8.5 fl (7.4-10.4); Monocytes # 0.6 K/mm3 (0.1-1.0); Monocytes % 9.1 % (1.7-9.3); Neutrophils # 3.5 K/mm3 (1.8-7.8); Platelet Count 104 K/mm3 (142-424); Red Blood Count 4.92 M/mm3 (4.60-6.20); White Blood Count 6.8 K/mm3 (4.8-10.8)
[2024-02-29 10:59] LABS: Albumin Level 4.2 g/dl (3.5-5.0); Chloride 106 mmol/L (98-107); Sodium 138 mmol/L (136-145)
[2024-02-29 11:00] LABS: Potassium 4.1 mmoL/L (3.5-5.1)
[2024-02-29 11:02] LABS: Alanine Aminotransferase 77 U/L (12-78); Alkaline Phosphatase 151 U/L (38-126); Anion Gap 10.1 mEq/L (5-15); Aspartate Amino Transferase 96 U/L (17-59); Bilirubin,Direct 0.4 mg/dl (0.0-0.4); Bilirubin,Indirect 1.1 mg/dL (0.0-0.9); Bilirubin,Total 1.5 mg/dl (0.2-1.3); Blood Urea Nitrogen 25 mg/dl (9-20); Carbon Dioxide 26 mmol/L (22.0-30.0); Cholesterol 160 mg/dl (140-200); Estimated Glomerular Filt Rate 59 ml/min (>60); GFR (African American) 71 ML/MIN (>60); Total Protein,Serum 7.5 g/dl (6.3-8.2); Triglycerides 78 mg/dl (30-150); VLDL Cholesterol 16 mg/dL (0-40)
[2024-02-29 11:03] LABS: Chol/HDL Ratio 2.7 (1-3.5); Glucose 107 mg/dl (74-100); HDL Cholesterol 59 mg/dl (40-60)
[2024-02-29 11:24] LABS: Direct LDL Cholesterol 68.94 mg/dL (100-129)
[2024-02-29 11:33] LABS: Thyroid Stimulating Hormone 1.55 uIU/mL (0.465-4.68)
== END 2024-02-29 23:59 | disposition home or self-care (01) ==
PROVIDERS: PCP Family Medicine; Visit Provider Physician Assistant
DX: E78.2 Mixed hyperlipidemia (principal); I95.2 Hypotension due to drugs; I25.10 Atherosclerotic heart disease of native coronary artery without angina pectoris; E78.5 Hyperlipidemia, unspecified
CPT/HCPCS: 36415; 80048; 80061; 80076; 84443; 85025

== ENCOUNTER 2024-08-04 10:36 | Outpatient (CLI) | payer MEDICARE, SELFPAY ==
[2024-08-04 11:18] LABS: Basophils # 0.1 K/mm3 (0-0.2); Basophils % 0.7 % (0.1-2.0); Eosinophils # 1.1 Kmm3 (0.0-0.4); Eosinophils % 13.1 % (0.1-12.0); Hematocrit 46.9 % (42.0-52.0); Hemoglobin 16.4 g/dL (14.1-18.0); Immature Granulocytes # 0.03 10^3uL; Immature Granulocytes % 0.3 %; Lymphocytes % 23.1 % (10-50); Mean Corpuscular Hemoglobin 32.7 pg (27.0-31.2); Mean Corpuscular Volume 93.6 fl (80-94); Mean Platelet Volume 10.8 fl (7.4-10.4); Monocytes # 1.2 K/mm3 (0.1-1.0); Monocytes % 13.4 % (1.7-9.3); Neutrophils # 4.3 K/mm3 (1.8-7.8); Neutrophils % 49.4 % (37.0-80.0); Nucleated Red Blood Cells # 0 10^3/uL; Nucleated Red Blood Cells % 0 %; Platelet Count 119 K/mm3 (142-424); Red Blood Count 5.01 M/mm3 (4.60-6.20); Red Cell Distribution Width 13.5 % (11.5-17.5); Red Cell Distribution Width-SD 46.5 fL; White Blood Count 8.6 K/mm3 (4.8-10.8)
[2024-08-04 11:44] LABS: Alanine Aminotransferase 89 U/L (12-78); Albumin Level 4.4 g/dl (3.5-5.0); Alkaline Phosphatase 108 U/L (38-126); Anion Gap 10.1 mEq/L (5-15); Aspartate Amino Transferase 73 U/L (17-59); Bilirubin,Direct 0.2 mg/dl (0.0-0.4); Bilirubin,Indirect 0.9 mg/dL (0.0-0.9); Bilirubin,Total 1.1 mg/dl (0.2-1.3); Bilirubin,Unconjugated 0.9 mg/dL (0.0-1.1); Blood Urea Nitrogen 25 mg/dl (9-20); Calcium 9.3 mg/dl (8.4-10.2); Carbon Dioxide 27 mmol/L (22.0-30.0); Chloride 101 mmol/L (98-107); Chol/HDL Ratio 2.6 (1-3.5); Cholesterol 143 mg/dl (140-200); Creatine Kinase 71 U/L (55-170); Estimated Glomerular Filt Rate 59 ml/min (>60); GFR (African American) 71 ML/MIN (>60); Glucose 105 mg/dl (74-100); HDL Cholesterol 54 mg/dl (40-60); Potassium 4.1 mmoL/L (3.5-5.1); Sodium 134 mmol/L (136-145); Total Protein,Serum 7.5 g/dl (6.3-8.2); Triglycerides 80 mg/dl (30-150); VLDL Cholesterol 16 mg/dL (0-40)
[2024-08-04 11:55] LABS: Direct LDL Cholesterol 60.67 mg/dL (100-129)
[2024-08-04 12:00] LABS: Free T4 (Free Thyroxine) 1.36 ng/dl (0.78-2.19)
== END 2024-08-04 23:59 | disposition home or self-care (01) ==
LOC: LAB 10:37
PROVIDERS: PCP Family Medicine; Visit Provider Physician Assistant
DX: I25.10 Atherosclerotic heart disease of native coronary artery without angina pectoris (principal); I10 Essential (primary) hypertension; I95.2 Hypotension due to drugs; R06.02 Shortness of breath; R42 Dizziness and giddiness; E78.2 Mixed hyperlipidemia
CPT/HCPCS: 36415; 80048; 80061; 80076; 82550; 84439; 84443; 85025

== ENCOUNTER 2024-11-02 09:54 | Outpatient (CLI) | payer MEDICARE, SELFPAY ==
[2024-11-02 16:17] LABS: Alanine Aminotransferase 64 U/L (12-78); Albumin Level 4.2 g/dl (3.5-5.0); Albumin/Globulin Ratio 1.3 (1.1-1.8); Alkaline Phosphatase 149 U/L (38-126); Anion Gap 8.4 mEq/L (5-15); Aspartate Amino Transferase 61 U/L (17-59); Bilirubin,Total 0.9 mg/dl (0.2-1.3); Blood Urea Nitrogen 15 mg/dl (9-20); Calcium 9.3 mg/dl (8.4-10.2); Carbon Dioxide 31 mmol/L (22.0-30.0); Chloride 103 mmol/L (98-107); Creatinine,Serum 1.20 mg/dl (0.66-1.25); Estimated Glomerular Filt Rate 59 ml/min (>60); GFR (African American) 71 ML/MIN (>60); Globulin 3.2 g/dL (1.3-3.2); Glucose 104 mg/dl (74-100); Potassium 4.4 mmoL/L (3.5-5.1); Sodium 138 mmol/L (136-145); Total Protein,Serum 7.4 g/dl (6.3-8.2)
[2024-11-02 17:22] LABS: Hemoglobin A1C 6.3 % (4.0-6.0)
--- OUTSIDE RECORDS SUMMARY | 2024-11-04 09:57 | XMS_ITS | Encounter Summary ---
Author Organization Healthcare Address [address] [place] [address] Care Team Providers Care Cheese Sprayer Name Role Phone Israel Castillo Unavailable Israel Castillo Primary Care Provider [phone] Elgin Watson MD Primary Care Provider [phone] Clemente Parson MD Unavailable [phone] Encounter Details Date Type Department Care Team (Late st Contact Info) Description 10/28/2021 Orders Only External Location [address] [place] [address] Provider, External Social History Tobacco Use Types Packs/Day Years Used Date Smoking Tobacco: Never Assessed Sex and Gender Information Value Date Recorded Sex Assigned at Not on file Legal Sex Male 7:33 PM EDT Gender Identity Not on file Sexual Orientation Not on file documented as of this encounter Plan of Treatment Not on file documented as of this encounter Procedures Procedure Name Priority Date/Time Associated Diagnosis Comments IR CHEST OUTSIDE IMAGES 10/28/2021 10:07 AM EDT documented in this encounter Results * IR CHEST OUTSIDE IMAGES (10/28/2021 10:07 AM EDT) Anatomical Region Laterality Modality X-Ray Angiograph y 10/28/2021 10:0 7 AM EDT us External Provider IMG IR PROCEDURES Final Result documented in this encounter Visit Diagnoses Not on filedocumented in this encounter Care Teams Cheese Sprayer Relationship Specialty Start Date End Date Israel Castillo PA [address] [place], [place] [id number] PCP - General 11/05/21 11/12/21 Elgin Watson MD [address] [place] [address] [address] [place] [address] PCP - General 11/13/21 Israel Castillo PA [address] [place] [id number] Referring Physician General Surgery 11/05/21 11/12/21 Clemente Parson MD [address] [place] [address] Referring Physician Cardiology 11/13/21 documented as of this encounter
--- OUTSIDE RECORDS SUMMARY | 2024-11-04 09:57 | XMS_ITS | Clinical Summary ---
Author Organization [facility] Address [address] [place] [address] Care Team Providers Care Insurance Appraiser Name Role Phone Tavares Zayas MD Primary Care Provider + Allergies No known active allergies Medications atorvastatin (LIPITOR) 20 MG tablet Take 20 mg by mouth Daily. Active pantoprazole (PROTONIX) 40 MG EC tablet Take 40 mg by mouth Daily. Active ferrous sulfate 325 (65 FE) MG tablet Take 325 mg by mouth Daily With Breakfast. Active cholecalciferol (VITAMIN D3) 1000 units tablet Take 1,000 Units by mouth Daily. Active Active Problems Problem Noted Date Diagnosed Date Gastrointestinal hemorrhage 12/08/2018 Anemia, blood loss 12/08/2018 Abnormal CAT scan 12/08/2018 Family History Medical History Relation Name Comments Colon cancer Neg Hx Colon polyps Neg Hx Social History Tobacco Use Types Packs/Day Years Used Date Smoking Tobacco: Former Smokeless Tobacco: Never Alcohol Use Standard Drinks/Week Comments No 0 (1 standard drink = 0.6 oz pur e alcohol) AUDIT-C Answer Date Recorded Frequency of Alcohol Consumption Never 12/07/2018 Average Number of Drinks Not on file 019 Frequency of Binge Drinking Not on file 11/21 Abuse Screen Answer Date Recorded Unsafe at Home or Work/School Not on file Feels Threatened by Someone? Not on file 02/2023 Does Anyone Keep You from Co ntacting Others or Doint Things Outside the Home? Not on file 01/01/2023 Physical Sign of Abuse Present Not on file 1 Housing Stability Answer Date Recorded Current Living Arrangements Not on file 12/21 Potentially Unsafe Housing Conditions Not on mode e 01/01/2023 Family and Community Support Answer Mitul e Recorded Help with Day-to-Day Activities Not on file 01/01/2023 Lonely or Isolated Not on file 01/01/2023 Employment Answer Date Recorded Do you want help finding or keeping work or a carl b? Not on file 01/01/2023 Disabilities Answer Date Recorded Concentrating, Remembering, or Making Decisions Difficulty Not on file 01/01/2023 Doing Errands Independently Difficulty Not on fi le 01/01/2023 Education Answer Date Recorded Help with school or training? Not on file Preferred Language Not on file 01/01/2023 Sex and Gender Information Value Date Recorded Sex Assigned at Not on file Legal Sex Male 2:07 PM EDT Gender Identity Not on file Sexual Orientation Not on file Last Filed Vital Signs Vital Sign Reading Time Taken Comments Blood Pressure 179/79 01/06/2019 2:12 PM EDT Pulse 88 01/06/2019 2:12 PM EDT Temperature - - Respiratory Rate - - Oxygen Saturation - - Inhaled Oxygen Concentration - - Weight 93.9 kg (207 lb) 01/06/2019 2:12 PM EDT Height - - Body Mass Index - - Plan of Treatment Health Maintenance Due Date Last Done Comments TDAP/TD VACCINES (1 - Tdap) 1965 Pneumococcal Vaccine 50+ (1 of 1 - PCV) 1996 ZOSTER VACCINE (1 of 2) 1996 ANNUAL PHYSICAL 12/07/2018 HEPATITIS C SCREENING 12/07/2018 RSV Vaccine - Adults (1 - 1-dose 75+ series) COVID-19 Vaccine ( - season) 2023 INFLUENZA VACCINE 12/21/2024 Procedures Procedure Name Priority Date/Time Associated Diagnosis Comments SCANNED - LABS 08/04/2024 SCANNED - LABS 08/04/2024 from Last 3 Months Results * LABS SCANNED (08/04/2024) Only the most recent of2 resultswithin the time period is included. Tavares Zayas MD LAB BLOOD ORDERABLES Fin al Result from Last 3 Months Insurance [id number] Care Teams Insurance Appraiser Relationship Specialty Start Date End Date Tavares Zayas MD PCP - General Family Medicine 12/24/18
--- OUTSIDE RECORDS SUMMARY | 2024-11-04 09:57 | XMS_ITS | Clinical Summary ---
Author Organization Healthcare Address [address] [id number] Care Team Providers Care Hammer Fitter Name Role Phone Elgin Watson MD Primary Care Provider [phone] Clemente Parson MD Unavailable [phone] Allergies No known active allergies Medications atorvastatin (Lipitor) 80 MG tablet Take 1 tablet (80 mg total) by mouth every night. 30 tablet 2 12/15/2021 Active metoprolol tartrate (Lopressor) 25 MG tablet Take 1 tablet (25 mg total) by mouth 2 (two) times a day. 60 tablet 2 12/15/2021 Active furosemide (Lasix) 40 MG tablet Take 1 tablet (40 mg total) by mouth 1 (one) time each day. 30 tablet 1 01/02/2022 Active Active Problems Problem Noted Date Diagnosed Date Multiple vessel coronary artery disease 12/14/19 Moderate aortic insufficiency 12/13/2021 Atrial pacemaker lead displacement 12/13/2021 Acute blood loss as cause of postoperative anemi a 12/13/2021 Pre-diabetes 12/13/2021 Atherosclerosis of aorta 12/13/2021 Diverticulosis 12/13/2021 Obesity (BMI 30.0-34.9) 11/14/2021 Hyperlipidemia 11/13/2021 Severe aortic stenosis 11/13/2021 Moderate mitral regurgitation 11/13/2021 Hypertension 11/13/2021 Sick sinus syndrome 11/13/2021 Biatrial enlargement 11/13/2021 Resolved Problems Problem Noted Date Diagnosed Date Resolved Date Hypokalemia 12/13/2021 12/18/2021 Hypocalcemia 12/13/2021 12/18/2021 Hypoproteinemia 12/13/2021 12/18/2021 Hypophosphatemia 12/13/2021 12/18/2021 Hypermagnesemia 12/13/2021 12/13/2021 Fever 12/10/2021 12/11/2021 Overview (12/11/2021): - Likely 2/2 recent CBP, possibly some atelectasis - Peaked at 101.8, has resolved Acute kidney injury 12/10/2021 12/14/19 Leukocytosis 12/09/2021 12/13/2021 Thrombocytopenia 12/09/2021 12/18/2021 Lactic acidosis 12/09/2021 12/13/2021 Duodenal ulcer 11/13/2021 11/13/2021 Immunizations Immunization Administration Dates Next Due Influenza, Unspecified 05/22/2016,2015,03/23/2014,01/29,12/19/2010,12/11/2009,12/11/2008 ,03/31/2008,04/13/2007,01/30/2003,12/22 Influenza, injectable, quadr ivalent, preservative free 03/31/2017 Influenza, seasonal, injectable 06/18/2018 Pneumococcal Conjugate PCV 13 04/17/2015 Pneumococcal Polysaccharide PPV23 03/31/2017 Td (adult), unspecified 06/03/2010,11/22/1999 Tdap 06/18/2018 Tetanus Toxoid, Unspecified 06/03/2010 Family History Medical History Relation Name Comments Heart failure Father Coronary artery disease Mother Diabetes Mother Anesthesia problems Neg Hx Malig Hyperthermia Neg Hx Relation Name Status Comments Father Mother Social History Tobacco Use Types Packs/Day Years Used Date Smoking Tobacco: Former Cigarettes 3 40 1 962 - 2002 Smokeless Tobacco: Never Tobacco Cessation:Counseling Given: Not Answered Alcohol Use Standard Drinks/Week Comments Yes 0 (1 standard drink = 0.6 oz pur e alcohol) rare CAGE ASSESSMENT Answer Date Recorded Cage unable to access Not on file 12/12/2021 Cage max number of drinks Not on file 2021 Cage Beverages a week Not on file 12/12/2021 Have you ever felt you should CUT down on your d rinking? 0 12/12/2021 Have you been ANNOYED by people criticizing your drinking? 0 12/12/2021 Have you felt GUILTY about your drinking? 0 12/12/2021 Have you had a drink first t katiana in the morning (EYE-SENIOR HEALTH EDUCATOR) to steady your nerves or to get rid of a hangover? 0 12/12/2021 CAGE Questionnaire Score 0 022 Sex and Gender Information Value Date Recorded Sex Assigned at Not on file Legal Sex Male 7:33 PM EDT Gender Identity Not on file Sexual Orientation Not on file Occupation Industry Job Start Date Job End Date [employer] Not on file Not on file Not on mode e Last Filed Vital Signs Vital Sign Reading Time Taken Comments Blood Pressure 134/74 01/02/2022 11:00 AM EDT Pulse 77 01/02/2022 11:00 AM EDT Temperature 36.5 C (97.7 F) 12/15/2021 3:15 PM EDT Respiratory Rate 25 12/15/2021 3:15 PM EDT Oxygen Saturation 96% 01/02/2022 11:00 AM EDT Inhaled Oxygen Concentration - - Weight 93.4 kg (206 lb) 01/02/2022 11:00 AM EDT Height 167.6 cm (5' 6 ) 01/02/2022 11:00 AM EDT Body Mass Index 33.25 01/02/2022 11:00 AM EDT Plan of Treatment Health Maintenance Due Date Last Done Comments [facility]-Depression Screening 1945 [facility]-Hepatitis C Screening 1945 [facility]-Medicare Annual Wellness (AWV) 1945 [facility]-/Child/Adol SDOH Screenings 1946 [facility]- SDOH Screenings 1964 [facility]-Adult SDOH Screenings 1964 [facility]-Zoster Vaccines (1 of 2) 1996 [facility]-RSV Vaccine: 60+ Years or (1 - 1-dose 75+ series) 2021 [id number] Vaccine (2 - season) 2023 10/10/2020 [facility]-Influenza Vaccine (#1) 11/21/202406/18, 03/31/2017, 05/22/2016, Additional history exists [facility]-DTaP,Tdap,and Td Vaccines (2 - Td or Tdap) 06/18/2028 06/18/2018, 06/03/2010, 11/22/1999 [facility]-Pneumococcal Vaccine: 50+ Years Completed 03/31/2017, 04/17/2015 Colonoscopy Discontinued 10/21/2018, 03/30/2017 [facility]-Colorectal Cancer Screening Discontinued [facility]-Diabetes: Hemoglobin A1C Discontinued 11/14/2021, 03/29/2017 [facility]-Obesity Intervention Completed 01/02/2022, 10/22 CT Colonography Discontinued FIT-DNA Discontinued FIT Discontinued FOBT Discontinued HPV Vaccines Aged Out No longer eligi ble based on patient's age to complete this topic Sigmoidoscopy Discontinued [facility]-HIB Vaccines Aged Out No longer e ligible based on patient's age to complete this topic [facility]-Hepatitis A Vaccines Aged Out No longer eligible based on patient's age to complete this topic [facility]-IPV Vaccines Aged Out No longer e ligible based on patient's age to complete this topic [facility]-Rotavirus Vaccines Aged Out No lo nger eligible based on patient's age to complete this topic Medical Devices Implanted Type Area Licensed Marine Engineer Device Identifier Shelf Expiration Date Model / Serial / Lot Valve Aortic Inspiris Resilia 25mm - [id number] Implanted:Qty: 1 on 12/09/2021 by Roberto Flynn MD at [facility] N/A: Heart [id number] 09/11/2025 [id number] / / [id number] Procedures Procedure Name Priority Date/Time Associated Diagnosis Comments HEMOGLOBIN A1C Routine 11/14/2021 1:41 PM EDT Coronary artery disease, unspecified vessel or lesion type, unspecified whether angina present, unspecified whether [place] or transplanted heart COLONOSCOPY 10/21/2018 from Last 3 Months or Most Recently Relevant to Health Maintenance Results * (ABNORMAL) Hemoglobin A1c (11/14/2021 1:41 PM EDT) Hemoglobin A1c 5.9(H) <5.7 % 11/14/2021 3:09 PM EDT [facility] Blood Venous blood specimen / Unknown Venipuncture / Unknown 11/14/2021 1:41 PM EDT 11/14/2021 1:42 PM EDT Narrative [facility] - 11/14/2021 3:09 PM EDT HA1C Interpretive Data: Diagnosis of Diabetes: Diabetic > or = 6.5% Pre-diabetic 5.7 to 6.4% Non-diabetic < or = 5.6% Glycemic Targets for Type I and Type II Diabetics: Non- Adults <7.0% Adults <6.0% Children and Adolescents <7.5% Source: [place] Diabetes Association. Standards of medical care in diabetes,2017. Diabetes Care.2017:40 (suppl 1):S1-S135. HbA1c assay performed by an ion-exchange chromatography method that is certified traceable to the DCCT. us Roberto Flynn MD LAB BLOOD ORDERABLES Final R esult [facility] [address] [place] [id number] * COLONOSCOPY (10/21/2018) Anatomical Region Laterality Modality Endoscopy Narrative 10/21/2018 Ordered by an unspecified provider. Zzzhistorical Provider GI PROCEDURE ORDERABLE S Final Result from Last 3 Months or Most Recently Relevant to Health Maintenance Insurance [facility] MEDICARE Advance Directives * Full Code (Latest Code Status on File) Date Activated Date Inactivated Comments 12/09/2021 3:19 PM 12/15/2021 7:53 PM Question Answer Comments Patient has decision-making capacity? Yes Care Teams Hammer Fitter Relationship Specialty Start Date End Date Elgin Watson MD [address] [place] [address] #1 #1 KASSY Ambrosio [address] PCP - General 11/13/21 Clemente Parson MD [address] [place] [address] Referring Physician Cardiology 11/13/21
== END 2024-11-02 23:59 | disposition home or self-care (01) ==
PROVIDERS: PCP Family Medicine; Visit Provider Family Medicine
DX: R73.9 Hyperglycemia, unspecified (principal); Z12.5 Encounter for screening for malignant neoplasm of prostate; R74.8 Abnormal levels of other serum enzymes
CPT/HCPCS: 80053; 80074; 83036; G0103

== ENCOUNTER 2025-01-23 12:45 | Outpatient (CLI) | payer MEDICARE, SELFPAY ==
--- OUTSIDE RECORDS SUMMARY | 2025-01-23 12:49 | XMS_ITS | Clinical Summary ---
Author Organization Healthcare Address [address] [id number] Care Team Providers Care Auto Service Mechanic Name Role Phone Elgin Watson MD Primary Care Provider [phone] Clemente Parson MD Unavailable [phone] Allergies No known active allergies Medications atorvastatin [...] 11/13/2021 Hypertension 11/13/2021 Sick sinus syndrome 11/13/2021 Resolved Problems Problem Noted Date Diagnosed Date Resolved Date Hypokalemia 12/13/2021 12/18/2021 Hypocalcemia 12/13/2021 12/18/2021 Hypoproteinemia 12/13/2021 12/18/2021 Hypophosphatemia 12/13/2021 12/18/2021 Hypermagnesemia 12/13/2021 12/13/2021 Fever 12/10/2021 12/11/2021 Overview (12/11/2021): - Likely 2/2 recent CBP, possibly some atelectasis - Peaked at 101.8, has resolved Acute kidney injury 12/10/2021 12/14/19 Leukocytosis 12/09/2021 12/13/2021 Thrombocytopenia 12/09/2021 12/18/2021 Lactic acidosis 12/09/2021 12/13/2021 Duodenal ulcer 11/13/2021 11/13/2021 Biatrial enlargement 11/13/2021 025 Immunizations Immunization Administration Dates Next Due Influenza, [...] Have you had a drink first t katiaan in the morning (EYE-FIELD RECORDER) to steady your nerves or to get rid of a hangover? 0 12/12/2021 CAGE Questionnaire Score 0 022 Sex and Gender Information Value Date Recorded Sex Assigned at Not on file Legal Sex Male 7:33 PM EDT Gender Identity Not on file Sexual Orientation Not on file Occupation Industry Job Start Date Job End Date [employer] [place] [employer] Not on file Not on file [...] Date Last Done Comments [facility]-Depression Screening 1945 [facility]-Infant/Child/Adol SDOH Screenings 1945 [facility]- SDOH Screenings 1964 [facility]-Adult SDOH Screenings 1964 [facility]-Zoster Vaccines (1 of 2) 1996 [facility]-RSV Vaccine: 60+ Years or (1 - 1-dose 75+ series) 2021 [id number] Vaccine (2 - 2024- season) 2024 10/10/2020 [facility]-Influenza Vaccine (#1) 11/21/202406/18, 03/31/2017, 05/22/2016, Additional history exists [facility]-DTaP,Tdap,and Td Vaccines (2 - Td or Tdap) 06/18/2028 06/18/2018, 06/03/2010, 11/22/1999 [facility]-Pneumococcal Vaccine: 50+ Years Completed 03/31/2017, 04/17/2015 Colonoscopy Discontinued 10/21/2018, 03/30/2017 [facility]-Colorectal Cancer Screening Discontinued [facility]-Diabetes: Hemoglobin A1C Discontinued 11/14/2021, 03/29/2017 CT Colonography Discontinued FIT-DNA Discontinued FIT Discontinued [...] this topic Medical Devices Implanted Type Area Salvage Clerk Device Identifier Shelf Expiration Date Model / Serial / Lot Valve Aortic Inspiris Resilia 25mm - [id number] Implanted:Qty: 1 on 12/09/2021 by Roberto Flynn MD at [facility] N/A: Heart [id number] 09/11/2025 [id number] / / [id number] Procedures Procedure Name Priority Date/Time Associated Diagnosis Comments HEMOGLOBIN A1C Routine 11/14/2021 1:41 PM EDT Coronary artery disease, unspecified vessel or lesion type, unspecified whether angina present, unspecified whether [place] or transplanted heart COLONOSCOPY 10/21/2018 from Last 3 Months or Most Recently Relevant to Health Maintenance Results * (ABNORMAL) Hemoglobin A1c (11/14/2021 1:41 PM EDT) Hemoglobin A1c 5.9(H) <5.7 % 11/14/2021 3:09 PM EDT [facility] Blood Venous blood specimen / Unknown Venipuncture / Unknown 11/14/2021 1:41 PM EDT 11/14/2021 1:42 PM EDT Narrative [facility] - 11/14/2021 3:09 PM EDT HA1C Interpretive Data: Diagnosis of Diabetes: Diabetic > or = 6.5% Pre-diabetic 5.7 to 6.4% Non-diabetic < or = 5.6% Glycemic Targets for Type I and Type II Diabetics: Non- Adults <7.0% Adults <6.0% Children and Adolescents <7.5% Source: [place] Diabetes Association. Standards of medical care in diabetes,2017. Diabetes Care.2017:40 (suppl 1):S1-S135. HbA1c assay performed by an ion-exchange chromatography method that is certified traceable to the DCCT. us Roberto Flynn MD LAB BLOOD ORDERABLES Final R esult [facility] [address] [place] [address] * COLONOSCOPY (10/21/2018) Anatomical Region Laterality Modality Endoscopy Narrative 10/21/2018 Ordered by an unspecified provider. Historical Provider GI PROCEDURE ORDERABLES Kriss l Result from Last 3 Months or Most Recently Relevant to Health Maintenance Insurance [employer] MEDICARE Advance Directives * Full Code (Latest Code Status on File) Date Activated Date Inactivated Comments 12/09/2021 3:19 PM 12/15/2021 7:53 PM Question Answer Comments Patient has decision-making capacity? Yes Care Teams Auto Service Mechanic Relationship Specialty Start Date End Date Elgin Watson MD [address] [place] [address] #1 #1 KASSY Ambrosio [address] PCP - General 11/13/21 Clemente Parson MD [address] [place] [address] Referring Physician Cardiology 11/13/21
--- OUTSIDE RECORDS SUMMARY | 2025-01-23 12:49 | XMS_ITS | Encounter Summary ---
Author Organization Healthcare Address [address] [place] [address] Care Team Providers Care Behavioral Instructor Name Role Phone Israel Csatillo Unavailable Israel Castillo Primary Care Provider [phone] Elgin Watson MD Primary Care Provider [phone] Clemente Parson MD Unavailable [phone] Encounter Details Date Type Department Care Team (Late st Contact Info) Description 10/28/2021 Orders Only External Location [address] [place] [address] Provider, External Social History Tobacco Use Types [...] on filedocumented in this encounter Care Teams Behavioral Instructor Relationship Specialty Start Date End Date Israel Castillo PA [address] [place], [place] [id number] PCP - General 11/05/21 11/12/21 Elgin Watson MD [address] [place] [address] #1 [address]1 [place] [address] PCP - General 11/13/21 Israel Castillo PA [address] [place] [address] Referring Physician General Surgery 11/05/21 11/12/21 Clemente Parsno MD [address] [place] [address] Referring Physician Cardiology 11/13/21 documented as of this encounter
--- OUTSIDE RECORDS SUMMARY | 2025-01-23 12:49 | XMS_ITS | Clinical Summary ---
Author Organization [facility] Address [address] [place] [address] Care Team Providers Care Confectionery Cooker Name Role Phone Tavares Zayas MD Primary [...] - Adults (1 - 1-dose 75+ series) INFLUENZA VACCINE 10/21/2024 COVID-19 Vaccine ( - season) 2024 [facility] Care Teams Confectionery Cooker Relationship Specialty Start Date End Date Tavares Zayas MD PCP - General Family Medicine 12/24/18
--- NOTE | 2025-01-23 13:01 | XR_ITS ---
FINAL REPORT CLINICAL HISTORY: neck pain left arm numbness when turning head FINDINGS: CERVICAL SPINE 5 views of the cervical spine were obtained. There is no acute fracture. There is anterolisthesis of C7 on T1 which may be degenerative given lack of traumatic history. Otherwise, alignment is normal. There is multilevel degenerative disc disease, most pronounced at C5-6. Precervical soft tissues are unremarkable. There are vascular calcifications noted. In the right neck, lateral to the carotid artery, are several rounded calcifications which do not appear to be vascular. Etiology is unclear. Submandibular stones a consideration. Consider CT for further evaluation. IMPRESSION: Degenerative changes without acute bony abnormality. Reviewed, Interpreted and Dictated by Danna Tran MD Transcribed by Nena Isidro Authenticated and [facility]
[2025-01-23 14:10] LABS: Blood Urea Nitrogen 18 mg/dl (9-20); Creatinine,Serum 1.10 mg/dl (0.66-1.25); Estimated Glomerular Filt Rate 65 ml/min (>60); GFR (African American) 78 ML/MIN (>60)
[2025-01-23 14:14] LABS: Alanine Aminotransferase 78 U/L (12-78); Albumin Level 4.3 g/dl (3.5-5.0); Alkaline Phosphatase 124 U/L (38-126); Aspartate Amino Transferase 70 U/L (17-59); Bilirubin,Direct 0.1 mg/dl (0.0-0.4); Bilirubin,Indirect 1.1 mg/dL (0.0-0.9); Bilirubin,Total 1.2 mg/dl (0.2-1.3); Bilirubin,Unconjugated 1.1 mg/dL (0.0-1.1); Total Protein,Serum 8.0 g/dl (6.3-8.2)
== END 2025-01-23 23:59 | disposition home or self-care (01) ==
LOC: RAD 12:47
PROVIDERS: Nurse Practitioner; PCP Family Medicine; Visit Provider Family Medicine
DX: M47.812 Spondylosis without myelopathy or radiculopathy, cervical region (principal); R79.89 Other specified abnormal findings of blood chemistry
CPT/HCPCS: 36415; 72050; 80076; 82565; 84520

== ENCOUNTER 2025-02-07 11:47 | Outpatient (CLI) | payer MEDICARE, SELFPAY ==
[2025-02-07 12:43] LABS: Anion Gap 11.7 mEq/L (5-15); Blood Urea Nitrogen 23 mg/dl (9-20); Calcium 9.2 mg/dl (8.4-10.2); Carbon Dioxide 25 mmol/L (22.0-30.0); Chloride 99 mmol/L (98-107); Creatinine,Serum 1.20 mg/dl (0.66-1.25); Estimated Glomerular Filt Rate 59 ml/min (>60); GFR (African American) 71 ML/MIN (>60); Glucose 199 mg/dl (74-100); Potassium 3.7 mmoL/L (3.5-5.1); Sodium 132 mmol/L (136-145)
== END 2025-02-07 23:59 | disposition home or self-care (01) ==
LOC: LAB 11:48
PROVIDERS: PCP Family Medicine; Visit Provider Physician Assistant
DX: I25.10 Atherosclerotic heart disease of native coronary artery without angina pectoris (principal); I50.30 Unspecified diastolic (congestive) heart failure
CPT/HCPCS: 36415; 80048

== ENCOUNTER 2025-02-09 08:38 | Outpatient (CLI) | payer MEDICARE, SELFPAY ==
--- OUTSIDE RECORDS SUMMARY | 2025-02-09 08:44 | XMS_ITS | Encounter Summary ---
Author Organization Healthcare Address [address] [place] [address] Care Team Providers Care Epic Willow Specialist Name Role Phone Israel Castillo Unavailable Israel Castillo Primary Care Provider [phone] Elgin Watson MD Primary Care Provider [phone] Clemente Parson MD Unavailable [phone] Encounter Details Date Type Department Care Team (Late st Contact Info) Description 10/28/2021 Orders Only External Location [address] [place] [address] Provider, External Social History Tobacco Use Types [...] on filedocumented in this encounter Care Teams Epic Willow Specialist Relationship Specialty Start Date End Date Israel Castillo PA [address] [place], [place] [id number] PCP - General 11/05/21 11/12/21 Elgin Watson MD [address] [place] [address] #1 [address]1 [place] [address] PCP - General 11/13/21 Israel Castillo PA [address] [place] [address] Referring Physician General Surgery 11/05/21 11/12/21 Clemente Parson MD [address] [place] [address] Referring Physician Cardiology 11/13/21 documented as of this encounter
--- OUTSIDE RECORDS SUMMARY | 2025-02-09 08:44 | XMS_ITS | Clinical Summary ---
Author Organization Healthcare Address [address] [id number] Care Team Providers Care Clerk General Office Name Role Phone Elgin Watson MD Primary Care Provider Clemente Parson MD Unavailable [phone] Allergies No known active allergies Medications atorvastatin [...] drink first t katiana in the morning (EYE-DRUG DEPARTMENT WORKER) to steady your nerves or to get rid of a hangover? 0 12/12/2021 CAGE Questionnaire Score 0 022 Sex and Gender Information Value Date Recorded Sex Assigned at Not on file Legal Sex Male 7:33 PM EDT Gender Identity Not on file Sexual Orientation Not on file Occupation Industry Job Start Date Job End Date [place] [employer] Not on file Not on file [...] Date Last Done Comments [facility]-Depression Screening 1946 [facility]-/Child/Adol SDOH Screenings 1946 [facility]- SDOH Screenings 1964 [facility]-Adult SDOH Screenings 1964 [facility]-Zoster Vaccines (1 of 2) 1996 [facility]-RSV Vaccine: 60+ Years or (1 - 1-dose 75+ series) 2021 [id number] Vaccine (2 - 2024- season) 2024 10/10/2020 [...] this topic Medical Devices Implanted Type Area Telephoto Engineer Device Identifier Shelf Expiration Date Model / Serial / Lot Valve Aortic Inspiris Resilia 25mm - [id number] Implanted:Qty: 1 on 12/09/2021 by Roberto Flynn MD at [facility] N/A: Heart [id number] 09/11/2025 [id number] / / [id number] Procedures Procedure Name Priority Date/Time Associated Diagnosis Comments HEMOGLOBIN A1C Routine 11/14/2021 1:41 PM EDT Coronary artery disease, unspecified vessel or lesion type, unspecified whether angina present, unspecified whether [place] or transplanted heart COLONOSCOPY 10/21/2018 from Last 3 Months or Most Recently Relevant to Health Maintenance Results * (ABNORMAL) Hemoglobin A1c (11/14/2021 1:41 PM EDT) Hemoglobin A1c 5.9(H) <5.7 % 11/14/2021 3:09 PM EDT [facility] Blood Venous blood specimen / Unknown [...] Adults <6.0% Children and Adolescents <7.5% Source: [place] Diabetes Association. Standards of medical care in diabetes,2017. Diabetes Care.2017:40 (suppl 1):S1-S135. HbA1c assay performed by an ion-exchange chromatography method that is certified traceable to the DCCT. us Roberto Flynn MD LAB BLOOD ORDERABLES Final R esult [facility] [address] [place] [address] * COLONOSCOPY (10/21/2018) Anatomical Region Laterality Modality [...] Patient has decision-making capacity? Yes Care Teams Clerk General Office Relationship Specialty Start Date End Date Elgin Watson MD [address] [place] [address] #1 #1 KASSY Ambrosio [address] PCP - General 11/13/21 Clemente Parson MD [address] [place] [address] Referring Physician Cardiology 11/13/21
--- NOTE | 2025-02-09 13:45 | CA_ITS ---
APPROVED REPORT EXAM: Comprehensive 2D, Doppler, and color-flow Echocardiogram Wet Room Supervisor: Yolanda Ledezma, RCS, RVS Ht: 5 ft 6 in Wt: 239lbs BSA: 2.16 BP: 153/78 mmHg Indications: CABG, s/p AVR, HFpEF, HLD, HTN, edema 2D Dimensions IVSd 0.89 cm M: 0.6-1.2 LVEF (Visual) 63.60 % PWd 0.79 cm M: 0.6 - 1.2 LA Volume 51.40 mL LVDd 4.02 cm M: 4.2 - 5.9 LA Volume Index 23.80 mL/m2 (M/F) 16-34 LVDs 2.65 cm M: 2.5 - 4.0 EF AP4 47.80 % Left Atrium 4.15 cm M: 3.0 - 4.0 GL Strain -16.2 % M-Mode Dimensions RVDd 1.74 cm (0.9-2.6) LA Diam 3.97 cm (1.9-4.0) LVDd 3.57 cm (3.5-5.7) LVDs 2.09 cm (3.5-5.7) IVSd 0.64 cm (0.6-1.1) PWd 0.75 cm (0.6-1.1) EF (Teich) 73.40% EPSs 0.20 cm FS 41.50% EDV (Teich) 53.30 mL TAPSE 1.39 (<1.7) ESV (Teich) 14.20 mL LV Diastology E Decel Time 170 (160-240 msec) E/A Ratio 1.21 MED A' 11.60 cm/s LAT A' 16.60 cm/s Aortic Valve HOLLAND Index 0.81 cm2/m2 AoV Peak Brian. 158.0 (50-130 cm/s) AO Peak GR. 9.90 mmHg AO Mean GR. 4.90 (<5 mmHg) AO VTI 25.3 (18-25 cm) HOLLAND (VTI) 1.79 (2.5-4.5 cm2) Mitral Valve MV A Velocity 98.0 (40-130 cm/s) E/A Ratio 1.21 Pulmonary Valve PV Peak Velocity 72.0 (50-150 cm/s) AL End VMAX 120.0 cm/s Tricuspid Valve TR P. Velocity 257.00 cm/s RAP Estimate 10.00 mmHg RVSP 36.40 mmHg Left Ventricle The left ventricle is normal size. Left ventricular systolic function is normal. The left ventricular ejection fraction is within the normal range. There is increased left ventricular wall thickness. There is normal LV segmental wall motion. The left ventricular diastolic function is normal. LVEF is 55% Right Ventricle The right ventricle is normal size. The right ventricular systolic function is normal. Atria Left atrium is mildly dilated. Right atrium is mildly dilated. There is no color Doppler evidence of interatrial shunt. Aortic Valve s/p AVR. The prosthesis is well-seated. Peak velocity 1.5 m/s. Mean AV gradient 5 mmHg. Max AV gradient 10 mmHg. Trace aortic regurgitation is present. Mitral Valve The mitral valve is normal in structure. No evidence of mitral valve stenosis. Mild mitral regurgitation is present. Tricuspid Valve The tricuspid valve leaflets are thin and pliable. Mild tricuspid regurgitation. RVSP is 25-30 mmHg. Pulmonic Valve The pulmonary valve is grossly normal in structure. Trace pulmonic valve regurgitation is present. Great Vessels The aortic root is normal in size. IVC is normal in size and collapses >50% with inspiration. Pericardium There is no pericardial effusion. Other Information Study Quality: Fair Conclusion Normal biventricular systolic function. Biatrial dilation. s/p AVR. The prosthesis is well-seated. Acceptable AV gradients (peak velocity 1.5 m/s. Mean AV gradient 5 mmHg. Max AV gradient 10 mmHg). Mild MR, mild TR. Electronically signed by : Promise Enriquez MD 02/18/2025 20:29:34
== END 2025-02-09 23:59 | disposition home or self-care (01) ==
LOC: RT 08:39
PROVIDERS: PCP Student in an Organized Health Care Education/Training Program; Visit Provider Physician Assistant
DX: I08.1 Rheumatic disorders of both mitral and tricuspid valves (principal); I11.9 Hypertensive heart disease without heart failure; I50.33 Acute on chronic diastolic (congestive) heart failure; I25.10 Atherosclerotic heart disease of native coronary artery without angina pectoris; E78.5 Hyperlipidemia, unspecified; Z95.1 Presence of aortocoronary bypass graft; Z95.2 Presence of prosthetic heart valve
CPT/HCPCS: 93306

== ENCOUNTER 2025-02-22 08:40 | Outpatient (CLI) | payer MEDICARE, SELFPAY ==
--- OUTSIDE RECORDS SUMMARY | 2025-02-22 08:43 | XMS_ITS | Clinical Summary ---
Author Organization [facility] Address [address] [place] [address] Care Team Providers Care Workers Compensation Adjuster Name Role Phone Tavares Zayas MD Primary [...] ( - season) 2024 [facility] Care Teams Workers Compensation Adjuster Relationship Specialty Start Date End Date Tavares Zayas MD PCP - General Family Medicine 12/24/18
--- OUTSIDE RECORDS SUMMARY | 2025-02-22 08:43 | XMS_ITS | Encounter Summary ---
Author Organization Healthcare Address [address] [place] [address] Care Team Providers Care Hoop Driving Machine Operator Name Role Phone Israel Castillo Unavailable Israel Castillo Primary Care Provider [phone] Elgin Watson MD Primary Care Provider [phone] Clemente Pasron MD Unavailable [phone] Encounter Details Date Type Department Care Team (Late st Contact Info) Description 10/28/2021 Orders Only External Location [address] [place] [address] Provider, External Social History Tobacco Use Types [...] on filedocumented in this encounter Care Teams Hoop Driving Machine Operator Relationship Specialty Start Date End Date Israel Castillo PA [address] [place], [place] [id number] PCP - General 11/05/21 11/12/21 Elgin Watson MD [address] [place] [address] #1 [address]1 [place] [address] PCP - General 11/13/21 Israel Castillo PA [address] [place] [address] Referring Physician General Surgery 11/05/21 11/12/21 Clemente Parson MD [address] [place] [address] Referring Physician Cardiology 11/13/21 documented as of this encounter
--- OUTSIDE RECORDS SUMMARY | 2025-02-22 08:43 | XMS_ITS | Clinical Summary ---
Author Organization Healthcare Address [address] [id number] Care Team Providers Care Logistics Assistant Name Role Phone Elgin Watson MD Primary Care Provider [phone] Clemente Parson MD Unavailable [phone] Allergies No known active allergies Medications atorvastatin [...] drink first t katiana in the morning (EYE-GLAZE WIPER) to steady your nerves or to get rid of a hangover? 0 12/12/2021 CAGE Questionnaire Score 0 022 Sex and Gender Information Value Date Recorded Sex Assigned at Not on file Legal Sex Male 7:33 PM EDT Gender Identity Not on file Sexual Orientation Not on file Occupation Industry Job Start Date Job End Date [employer] Not on file Not on file [...] or (1 - 1-dose 75+ series) 2021 [id number] Vaccine (2 - 2024- season) 2024 10/10/2020 [...] this topic Medical Devices Implanted Type Area Media Relations Associate Device Identifier Shelf Expiration Date Model / Serial / Lot Valve Aortic Inspiris Resilia 25mm - [id number] Implanted:Qty: 1 on 12/09/2021 by Roberto Flynn MD at [facility] N/A: Heart [id number] 09/11/2025 [id number] / / [id number] Procedures Procedure Name Priority Date/Time Associated Diagnosis Comments HEMOGLOBIN A1C Routine 11/14/2021 1:41 PM EDT Coronary artery disease, unspecified vessel or lesion type, unspecified whether angina present, unspecified whether [place] or transplanted heart COLONOSCOPY 10/21/2018 from Last 3 Months or Most Recently Relevant to Health Maintenance Results * (ABNORMAL) Hemoglobin A1c (11/14/2021 1:41 PM EDT) Hemoglobin A1c 5.9(H) <5.7 % 11/14/2021 3:09 PM EDT [facility] Blood Venous blood specimen / Unknown [...] Adults <6.0% Children and Adolescents <7.5% Source: [place] [employer]. Standards of medical care in diabetes,2017. Diabetes Care.2017:40 (suppl 1):S1-S135. HbA1c assay performed by an ion-exchange chromatography method that is certified traceable to the DCCT. us Roberto Flynn MD LAB BLOOD ORDERABLES Final R esult [facility] [address] [place] [address] * COLONOSCOPY (10/21/2018) Anatomical Region Laterality Modality [...] Patient has decision-making capacity? Yes Care Teams Logistics Assistant Relationship Specialty Start Date End Date Elgin Watson MD [address] [place] [address] #1 [address]1 KASSY Ambrosio [id number] PCP - General 11/13/21 Clemente Parson MD [address] [place] [address] Referring Physician Cardiology 11/13/21
--- NOTE | 2025-02-22 08:45 | CT_ITS ---
FINAL REPORT TECHNIQUE: Thin section axial images were obtained through the cervical spine without and with contrast. Multiplanar reconstruction images were obtained from the axial data. Exam was performed using dose reduction techniques. CLINICAL HISTORY: neck pain COMPARISON: None FINDINGS: There is no acute fracture. No facet lock. Cranial cervical junction is intact. There is multilevel degenerative disc disease which is most pronounced at C4-5 and C6-7. Postcontrast images are limited as no soft tissue windows were provided. There are enlarged right lower cervical lymph nodes. The largest measures 19 mm on series 5, image 66. No other lymphadenopathy. No enhancing fluid collection. There is a right thyroid nodule measuring 14 mm. Soft tissue is thickened posteriorly at the level of the false vocal cords which is nonspecific. Remaining soft tissues are without acute abnormality. IMPRESSION: Degenerative disease of the cervical spine. Consider MRI if clinically indicated. Lower right cervical lymphadenopathy is nonspecific and could be reactive or neoplastic. Soft tissue thickening of the larynx posteriorly at the level of the false vocal cords. Correlate clinically and consider direct visualization. Reviewed, Interpreted and Dictated by Danna Tran MD Transcribed by June Perez Authenticated and [facility]
[2025-02-22] MEDS: SODIUM CHLORIDE 0.9% 10ML SYR (RAD ONLY) 10 ML IV (08:59)
[2025-02-22] MEDS: IOPAMIDOL-370 (76%);100ML BOTTLE 75 ML IV (08:59)
== END 2025-02-22 23:59 | disposition home or self-care (01) ==
LOC: RAD 08:41
PROVIDERS: PCP Family Medicine; Visit Provider Family Medicine
DX: M50.321 Other cervical disc degeneration at C4-C5 level (principal); M50.323 Other cervical disc degeneration at C6-C7 level; M79.89 Other specified soft tissue disorders; G58.9 Mononeuropathy, unspecified; R59.0 Localized enlarged lymph nodes; R20.2 Paresthesia of skin
CPT/HCPCS: 72127; Q9967